=== PATIENT | female | born 1935 | race Caucasian/White ===

== ENCOUNTER → 2017-03-05 | Outpatient (CLI) | payer OTHER, MEDICARE ==
[~2017-03-05] MED LIST: ACET-1256 PO; ALPR-411 PO; ASCO500T3 PO; ASPI81TA28 PO; CALC600T9 PO; CHLO5CAP19 PO; DPH/ PO; DPRSO15 TOP; FEXO1TAB49 PO; FLUT0.15 NAE; LEVO50TA PO; LISI-725 PO; MECL1TAB40 PO; MULTTAB58 PO; OMEG10007 PO; PRAV40TA2 PO; SITA25TA PO; ZNTT/150 PO
[2017-03-05 12:45] LABS: BASO % 0.3 %; BASO ABS # 0.02 K/uL (0-0.2); COMPLETE YES; EOS % 0.7 %; HEMATOCRIT 41.1 % (37-47); IG% 0.1 %; LYMPH ABS # 2.34 K/uL (1.2-3.4); MEAN CELL VOLUME 89.9 fL (80-100); MEAN CORPUSCULAR HEMOGLOBIN 31.7 pg (25-34); MEAN CORPUSCULAR HGB CONC 35.3 g/dl (32-36); MEAN PLATELET VOLUME 10.4 fL (7.4-10.4); NEUT % 56.9 %; PLATELET COUNT 190 K/uL (130-400); RED BLOOD COUNT 4.57 M/uL (4.2-5.4); WHITE BLOOD COUNT 6.89 K/uL (4.8-10.8)
[2017-03-05 12:53] LABS: PROTHROMBIN TIME (PATIENT) 10.8 SECONDS (9.0-12.0)
[2017-03-05 13:04] LABS: HEPATITIS B AB POS
[2017-03-05 13:09] LABS: ALKALINE PHOSPHATASE 85 U/L (45-117); ALT/SGPT 28 U/L (12-78); AST/SGOT 20 U/L (15-37); BLOOD UREA NITROGEN 14 mg/dl (7-18); BUN/CREATININE RATIO 13.5 (10-20); CALCIUM 9.3 mg/dl (8.5-10.1); CARBON DIOXIDE 29 mmol/L (21-32); CHLORIDE 96 mmol/L (98-107); GLUCOSE 89 mg/dl (70-99); HDL CHOLESTEROL 65 mg/dl; MAGNESIUM 2.2 mg/dl (1.8-2.4); SODIUM 132 mmol/L (136-145)
[2017-03-05 13:14] LABS: ALB/GLOB RATIO 1.2 (0.9-2); CHOLESTEROL 146 mg/dl (0-200); CHOLESTEROL/HDL RATIO 2.2; LDL CHOLESTEROL CALCULATED 65 mg/dl; TRIGLYCERIDES 79 mg/dl (0-150); VERY LOW DENSITY LIPOPROT CALC 16 mg/dl
[2017-03-05 13:21] LABS: ESTIMATED AVERAGE GLUCOSE 111 mg/dl; HA1C FLAG Normal (Normal)
[2017-03-05 13:37] LABS: RATIO 10.1 mcg/mg (0-30.0)
== END | disposition home or self-care (01) ==
LOC: C.LABBFT 08:40
PROVIDERS: ATTEND Nurse Practitioner Family
DX: E11.9 Type 2 diabetes mellitus without complications (principal); E78.00 Pure hypercholesterolemia, unspecified; E03.9 Hypothyroidism, unspecified; K21.9 Gastro-esophageal reflux disease without esophagitis; I10 Essential (primary) hypertension; K75.81 Nonalcoholic steatohepatitis (NASH); K74.60 Unspecified cirrhosis of liver

== ENCOUNTER → 2017-04-04 | Outpatient (CLI) | payer OTHER, MEDICARE ==
[2017-04-04 19:44] LABS: URINE APPEARANCE CLOUDY (CLEAR); URINE BILIRUBIN NEG (NEG); URINE COLOR RED; URINE NITRITE NEG (NEG); URINE PH 6.5 (4.5-7.5); URINE SPECIFIC GRAVITY 1.011 (1.000-1.030); UROBILINOGEN NEG (NEG)
[2017-04-04 19:46] LABS: MANUAL MICROSCOPIC REQUIRED? NO; REVIEW REQ? NO
== END | disposition home or self-care (01) ==
LOC: C.LABSPEC 17:52
PROVIDERS: ATTEND Nurse Practitioner Adult Health
DX: R30.0 Dysuria (principal)

== ENCOUNTER → 2017-04-25 | Outpatient (CLI) | payer OTHER, MEDICARE ==
[2017-04-26 11:59] LABS: URINE APPEARANCE CLOUDY (CLEAR); URINE BILIRUBIN NEG (NEG); URINE COLOR YELLOW; URINE NITRITE NEG (NEG); URINE PH 7.5 (4.5-7.5); URINE SPECIFIC GRAVITY 1.008 (1.000-1.030); UROBILINOGEN NEG (NEG)
[2017-04-26 12:16] LABS: MANUAL MICROSCOPIC REQUIRED? NO; REVIEW REQ? NO
== END | disposition home or self-care (01) ==
LOC: C.LABSPEC 11:15
PROVIDERS: ATTEND Family Medicine
DX: R30.0 Dysuria (principal)

== ENCOUNTER → 2017-05-02 | Outpatient (CLI) | payer OTHER, MEDICARE | END | disposition home or self-care (01) | LOC: C.PATHSPEC 17:09 | PROVIDERS: ATTEND Nurse Practitioner Family | DX: R31.9 Hematuria, unspecified (principal) ==

== ENCOUNTER → 2017-05-06 | Outpatient (CLI) | payer OTHER, MEDICARE ==
[2017-05-06 12:36] LABS: BLOOD UREA NITROGEN 12 mg/dl (7-18); BUN/CREATININE RATIO 13.5 (10-20); CREATININE 0.91 mg/dl (0.60-1.20)
== END | disposition home or self-care (01) ==
LOC: C.LABBFT 09:08
PROVIDERS: ATTEND Nurse Practitioner Family
DX: R31.9 Hematuria, unspecified (principal)

== ENCOUNTER → 2017-05-13 | Outpatient (CLI) | payer OTHER, MEDICARE ==
[~2017-05-13] MED LIST changes: +OPTIRAY 320 IV PRN
--- NOTE | 2017-05-13 11:29 | DIAGNOSTIC IMAGING REPORT ---
ABDOMEN AND PELVIS CT EXAMINATION PRE AND POST INTRAVENOUS CONTRAST CT DOSE: 1851.25 mGycm HISTORY: Hematuria R31.9 Hematuria diabetic-insulin only, no latex allergy, no iodine TECHNIQUE: Multiaxial CT images of the abdomen and pelvis were performed pre and post intravenous contrast enhancement. COMPARISON STUDY: 06/15/2016 FINDINGS: unenhanced component study confirms presence of an interval cholecystectomy. There are no renal calcifications. There is no evidence for renal hydronephrosis. Extrarenal pelves are noted bilaterally. Enhancing characteristics of the kidneys is uniform. There are no significant space-occupying renal lesions. Ureters normal in course and caliber. Bladder opacifies appropriately. Bowel pattern is nonobstructive throughout. There is no significant abdominal pelvic or inguinal adenopathy. IMPRESSION: 1. Interval cholecystectomy. 2. Normal evaluation of the urinary tracts.. 3. No acute process of the abdomen or pelvis. Electronically signed by: Adam Roblero M.D. 05/13/2017 11:28 AM Dictated Date/Time: 05/13/2017 11:23 AM
== END | disposition home or self-care (01) ==
LOC: C.CTS 10:49
PROVIDERS: ATTEND Nurse Practitioner Family
DX: R31.9 Hematuria, unspecified (principal); E11.9 Type 2 diabetes mellitus without complications

== ENCOUNTER → 2017-09-09 | Outpatient (CLI) | payer OTHER, MEDICARE ==
[~2017-09-09] MED LIST changes: -OPTIRAY 320 IV PRN
[2017-09-09 12:15] LABS: BASO % 0.4 %; BASO ABS # 0.02 K/uL (0-0.2); COMPLETE YES; HEMATOCRIT 39.8 % (37-47); IG% 0.2 %; LYMPH ABS # 1.84 K/uL (1.2-3.4); MEAN CELL VOLUME 91.5 fL (80-100); MEAN CORPUSCULAR HEMOGLOBIN 32.4 pg (25-34); MEAN CORPUSCULAR HGB CONC 35.4 g/dl (32-36); MEAN PLATELET VOLUME 10.3 fL (7.4-10.4); MONO % 9.5 %; NEUT % 53.9 %; PLATELET COUNT 181 K/uL (130-400); RED BLOOD COUNT 4.35 M/uL (4.2-5.4); WHITE BLOOD COUNT 5.26 K/uL (4.8-10.8)
[2017-09-09 12:37] LABS: ESTIMATED AVERAGE GLUCOSE 108 mg/dl; HA1C FLAG Normal (Normal)
[2017-09-09 13:41] LABS: AST/SGOT 20 U/L (15-37); BLOOD UREA NITROGEN 13 mg/dl (7-18); BUN/CREATININE RATIO 19.2 (10-20); CALCIUM 9.3 mg/dl (8.5-10.1); CARBON DIOXIDE 27 mmol/L (21-32); CHLORIDE 99 mmol/L (98-107); CREATININE 0.69 mg/dl (0.60-1.20); GLUCOSE 92 mg/dl (70-99); POTASSIUM 4.3 mmol/L (3.5-5.1); SODIUM 134 mmol/L (136-145); TRIGLYCERIDES 96 mg/dl (0-150); VERY LOW DENSITY LIPOPROT CALC 19 mg/dl
[2017-09-09 13:55] LABS: ALB/GLOB RATIO 1.2 (0.9-2); ALKALINE PHOSPHATASE 88 U/L (45-117); ALT/SGPT 25 U/L (12-78); CHOLESTEROL 157 mg/dl (0-200); CHOLESTEROL/HDL RATIO 2.6; HDL CHOLESTEROL 61 mg/dl; LDL CHOLESTEROL CALCULATED 77 mg/dl
== END | disposition home or self-care (01) ==
LOC: C.LABBFT 09:03
PROVIDERS: ATTEND Nurse Practitioner Family
DX: E11.9 Type 2 diabetes mellitus without complications (principal); E78.00 Pure hypercholesterolemia, unspecified; E03.9 Hypothyroidism, unspecified; K21.9 Gastro-esophageal reflux disease without esophagitis; I10 Essential (primary) hypertension; E11.40 Type 2 diabetes mellitus with diabetic neuropathy, unspecified; R51 Headache

== ENCOUNTER → 2018-03-11 | Outpatient (CLI) | payer OTHER, MEDICARE ==
[~2018-03-11] MED LIST changes: +RANI150T85 PO; -ZNTT/150 PO
[2018-03-11 12:35] LABS: BASO % 0.3 %; BASO ABS # 0.02 K/uL (0-0.2); EOS % 1.2 %; EOS ABS # 0.09 K/uL (0-0.5); HEMATOCRIT 39.7 % (37-47); IG# 0.02 K/uL (0.00-0.02); LYMPH % 33.1 %; LYMPH ABS # 2.53 K/uL (1.2-3.4); MEAN CELL VOLUME 91.7 fL (80-100); MEAN CORPUSCULAR HEMOGLOBIN 32.3 pg (25-34); MEAN CORPUSCULAR HGB CONC 35.3 g/dl (32-36); MEAN PLATELET VOLUME 10.1 fL (7.4-10.4); MONO % 8.9 %; MONO ABS # 0.68 K/uL (0.11-0.59); NEUT % 56.2 %; NEUT ABS # 4.31 K/uL (1.4-6.5); PLATELET COUNT 194 K/uL (130-400); RED CELL DISTRIBUTION WIDTH SD 43.7 fL (36.4-46.3); WHITE BLOOD COUNT 7.65 K/uL (4.8-10.8)
[2018-03-11 12:49] LABS: HEMOGLOBIN A1C 5.8 % (4.5-5.6)
[2018-03-11 12:58] LABS: ALBUMIN 4.2 gm/dl (3.4-5.0); BLOOD UREA NITROGEN 16 mg/dl (7-18); CALCIUM 9.1 mg/dl (8.5-10.1); CARBON DIOXIDE 29 mmol/L (21-32); CREATININE 0.83 mg/dl (0.60-1.20); GLUCOSE 98 mg/dl (70-99); POTASSIUM 4.6 mmol/L (3.5-5.1); SODIUM 129 mmol/L (136-145)
[2018-03-11 13:13] LABS: ALKALINE PHOSPHATASE 101 U/L (45-117); ALT/SGPT 35 U/L (12-78); AST/SGOT 24 U/L (15-37); CHOLESTEROL 154 mg/dl (0-200); LDL CHOLESTEROL CALCULATED 71 mg/dl; TOTAL PROTEIN 7.8 gm/dl (6.4-8.2)
== END | disposition home or self-care (01) ==
LOC: C.LABBFT 08:59
PROVIDERS: ATTEND Nurse Practitioner
DX: K76.0 Fatty (change of) liver, not elsewhere classified (principal); E11.9 Type 2 diabetes mellitus without complications; E78.00 Pure hypercholesterolemia, unspecified; E03.9 Hypothyroidism, unspecified; K21.9 Gastro-esophageal reflux disease without esophagitis; I10 Essential (primary) hypertension; E11.40 Type 2 diabetes mellitus with diabetic neuropathy, unspecified

== ENCOUNTER → 2018-03-24 | Outpatient (CLI) | payer OTHER, MEDICARE ==
[2018-03-24 12:59] LABS: ALBUMIN 4.1 gm/dl (3.4-5.0); BLOOD UREA NITROGEN 17 mg/dl (7-18); CALCIUM 9.2 mg/dl (8.5-10.1); CARBON DIOXIDE 29 mmol/L (21-32); CREATININE 0.77 mg/dl (0.60-1.20); GLUCOSE 85 mg/dl (70-99); POTASSIUM 4.4 mmol/L (3.5-5.1); SODIUM 132 mmol/L (136-145)
[2018-03-24 13:00] LABS: PHOSPHORUS 3.8 mg/dl (2.5-4.9)
== END | disposition home or self-care (01) ==
LOC: C.LAB1850 11:06
PROVIDERS: ATTEND Internal Medicine Nephrology
DX: E87.1 Hypo-osmolality and hyponatremia (principal)

== ENCOUNTER → 2018-04-04 | Outpatient (CLI) | payer OTHER, MEDICARE ==
[2018-04-04 16:45] LABS: ALBUMIN 4.2 gm/dl (3.4-5.0); BLOOD UREA NITROGEN 23 mg/dl (7-18); CARBON DIOXIDE 27 mmol/L (21-32); CREATININE 0.77 mg/dl (0.60-1.20); GLUCOSE 86 mg/dl (70-99); POTASSIUM 4.1 mmol/L (3.5-5.1); SODIUM 133 mmol/L (136-145)
[2018-04-04 16:46] LABS: PHOSPHORUS 3.2 mg/dl (2.5-4.9)
== END | disposition home or self-care (01) ==
LOC: C.LABBFT 12:03
PROVIDERS: ATTEND Internal Medicine Nephrology
DX: E87.1 Hypo-osmolality and hyponatremia (principal)

== ENCOUNTER 2021-08-30 10:20 | Inpatient (IN) ==
--- NOTE | 2021-08-30 11:34 | Emergency Department Note ---
History of Present Illness General Chief complaint: Abnormal Labs/Diagnostic Testing Stated complaint: ABNORMAL LAB WORK--HIGH POTASSIUM, LOW SODIUM Time Seen by Provider: 08/30/21 11:19 Source: patient, RN notes reviewed and old records reviewed Mode of arrival: ambulatory Limitations: no limitations History of Present Illness This patient is a 85-year-old female who has a history of Hester and is followed by Jennifer EDWARDS, comes in after having electrolyte abnormalities. She has been swelling for the last 2 weeks more than normal the increase her diuretic and change them on the and also again later. Her legs have started to go down. She has not felt well over the weekend she had some nausea decreased appetite a mild headache. No fall or trauma no chest pain she does feel mildly short of breath with walking for the last couple days she has had the Covid vaccine. No heart racing lightheadedness dizziness syncope or near syncope. She had lab work done yesterday as well as an ultrasound apparently her sodium was 128 and potassium was 6. Home Medications Medication Instructions Recorded Confirmed Type aspirin 81 mg tablet,delayed 81 mg PO DAILY 08/18/19 08/30/21 History release (Adult Low Dose Aspirin) calcium carb-vit D3-minerals 600 1 tab PO BID 08/18/19 08/30/21 History mg calcium-400 unit tablet cranberry extract 650 mg capsule 1,300 mg PO DAILY 08/18/19 08/30/21 History glucosamine sulfate 1,000 mg 1,000 mg PO BID 08/18/19 08/30/21 History capsule ibuprofen 200 mg capsule 200 mg PO Q6H 08/18/19 08/30/21 History multivitamin with iron (Daily 1 tab PO DAILY 08/18/19 08/30/21 History Multiple Vitamins/Iron) omega-3 fatty acids-fish oil 360 1 cap PO DAILY 08/18/19 08/30/21 History mg-1,200 mg capsule (Fish Oil) betamethasone dipropionate 0.05 % 1 appln TOP DAILY PRN #45 gm 09/15/19 08/30/21 Rx topical cream meclizine 12.5 mg tablet 12.5 mg PO TID PRN #60 tab 09/15/19 08/30/21 Rx fexofenadine 60 mg tablet (Allergy 60 mg PO DAILY tab 08/08/20 08/30/21 History Relief (fexofenadine)) blood sugar diagnostic (OneTouch #300 ea 01/04/21 08/10/21 Rx Ultra Blue Test Strip) diclofenac sodium 1 % topical gel 4 g TOPICAL QID PRN #100 g 02/06/21 08/30/21 Rx (Voltaren) solifenacin 5 mg tablet (Vesicare) 5 mg PO DAILY #90 tab 03/23/21 08/30/21 Rx levothyroxine 75 mcg tablet 75 mcg PO DAILY #90 tab 05/01/21 08/30/21 Rx pravastatin 40 mg tablet 40 mg PO DAILY #90 tab 05/01/21 08/30/21 Rx ascorbate calcium (vitamin C) 500 500 mg PO BID 06/22/21 08/30/21 History mg tablet furosemide 40 mg tablet (Lasix) 60 mg PO DAILY tab 06/22/21 08/30/21 History lisinopril 20 mg tablet 20 mg PO DAILY #90 tab 08/01/21 08/30/21 Rx chlordiazepoxide HCl 5 mg capsule 5 mg PO TID PRN #90 cap 08/07/21 08/30/21 Rx diphenoxylate-atropine 2.5 1 tab PO TID PRN #90 tab 08/07/21 08/30/21 Rx mg-0.025 mg tablet fluocinonide 0.05 % topical cream 1 applic TOP BID #30 gm 08/07/21 08/30/21 Rx promethazine 12.5 mg tablet 12.5 mg PO TID PRN #90 tab 08/07/21 08/30/21 Rx acetaminophen 500 mg tablet 500 mg PO Q6H PRN 08/30/21 08/30/21 History (Tylenol Extra Strength) famotidine 20 mg tablet 20 mg PO DAILY PRN 08/30/21 08/30/21 History spironolactone 100 mg tablet 100 mg PO QAM 08/30/21 08/30/21 History Allergies Allergy/AdvReac Type Severity Reaction Status Date / Time No Known Drug Allergies Allergy Verified 08/30/21 12:34 Past Med/Surg History Medical History (Updated 08/30/21 @ 16:56 by Jignesh Miller MD) Fatty (change of) liver, not elsewhere classified Former smoker H/O gastroesophageal reflux (GERD) History of basal cell carcinoma Pancreatitis Skin cancer 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 Surgical History H/O Mohs micrographic surgery for skin cancer face S/P appendectomy S/P cholecystectomy S/P ERCP S/P hysterectomy S/P tonsillectomy Family History Father Prostate cancer Diabetes Sister Myocardial infarction Mother Diabetes Stroke Family/Other Diabetes Colorectal cancer Denies family history of Ovarian cancer Breast cancer Social History Smoking Status: Never smoker Tobacco Type: Cigarettes Age Started Using Tobacco: 18; Age Quit Using Tobacco: 22; packs per day: 0.5; Years Smoked: 4; Cigarettes Per Day: 1 ppwk; Number of Years Since Quit: 63; Second Hand Exposure: No; Hx Alcohol Use: No Hx Substance Use: No Preferred Language: Hebrew Communication Ability: Effective Visual Impairment: Limited Hearing Ability: Hard of Hearing 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 marital status: / Current Living Situation: Alone current occupational status: retired How many Children do You have: 2 Feels Safe at Home: Yes Childhood Exposure to Second-Hand Smoke: No caffeine: Yes during the past year weight has: remained stable Dental Care, Regularly: No Physical Activity Frequency: Does not Exercise Seatbelt Use: always Sunscreen Use: No Assistive Devices: Denture - Upper, Denture - Lower, Glasses and Walker Review of Systems A total of 10 systems reviewed and were otherwise negative Physical Exam Vital Signs Vital Signs - 24 hr 08/30/21 10:26 08/30/21 11:10 08/30/21 14:03 Temperature 36.7 C Temperature Source Temporal Artery Scan Pulse Rate 80 Pulse Rate [Apical] 66 66 Pulse Rhythm [Apical] Regular Respiratory Rate 20 18 18 Blood Pressure 138/66 Blood Pressure [Left Arm] 137/71 Blood Pressure Mean 90 Blood Pressure Mean [Left Arm] 93 Pulse Oximetry 96 95 Oxygen Delivery Method Room Air Room Air Sepsis Recent Fever Within 48 Hours No Sepsis New/Unexplained Change in Mental Status No Sepsis Action Taken by Nursing No Action Required General: Well developed well nourished older female who appears in no acute distress, breathing comfortably on room air. Normal speech HEENT: Normal cephalic atraumatic. Pupils are equal round and reactive to light. Extraocular movements are intact. Oropharynx is pink with moist mucous membranes. No swelling of the mouth lips or tongue. Neck: Supple with a midline trachea. No meningeal signs or stiffness, no JVD or bruits. No Stridor. Chest: Clear to auscultation bilaterally. No wheezes or rhonchi. No increased work of breathing. Heart: Regular rate and rhythm without murmurs or gallops. Abdomen: Soft nontender, nondistended without rebound guarding or rigidity. Extremities: No cyanosis clubbing she has bilateral 1-2+ lower extremity edema. No calf tenderness or assymetry Spine/Back. Non tender to palpation. No CVA tenderness Skin: Good turgor without rashes. Neurologic exam: Cranial nerves two through 12 are intact. Motor and sensation are intact and symmetrical throughout. Medical Decision Making Differential Diagnosis Dehydration, hyperkalemia, hyponatremia, CHF, Hester, electrolyte or metabolic abnormality, infection, Covid Medical Records Attestation: I reviewed the patient's medical records. Home Medications Current Medication List: was personally reviewed by me Laboratory Data Attestation: I reviewed the patient's lab results. Result diagrams: 08/30/21 11:15 08/30/21 11:15 Lab Results 08/30/21 08/30/21 08/30/21 Range/Units 11:15 11:15 11:15 WBC 12.35 H (4.8-10.8) K/uL RBC 3.86 L (4.2-5.4) M/uL Hgb 12.5 (12.0-16.0) g/dL Hct 35.2 L (37-47) % MCV 91.2 (80-100) fL MCH 32.4 (25-34) pg MCHC 35.5 (32-36) g/dL RDW Std Deviation 43.7 (36.4-46.3) fL RDW Coeff of Timothy 13.1 (11.5-14.5) % Plt Count 144 (130-400) K/uL MPV 10.8 H (7.4-10.4) fL Immature Gran % (Auto) 0.2 % Neut % (Auto) 80.0 % Lymph % (Auto) 10.0 % [place] % (Auto) 6.4 % Eos % (Auto) 3.2 % Baso % (Auto) 0.2 % Neut # (Auto) 9.89 H (1.4-6.5) K/uL Lymph # (Auto) 1.24 (1.2-3.4) K/uL [place] # (Auto) 0.79 H (0.11-0.59) K/uL Eos # (Auto) 0.39 (0-0.5) K/uL Baso # (Auto) 0.02 (0-0.2) K/uL Immature Gran # (Auto) 0.02 (0.00-0.02) K/uL Sodium 126 L (136-145) mmol/L Potassium 5.4 H (3.5-5.1) mmol/L Chloride 95 L (98-107) mmol/L Carbon Dioxide 24 (21-32) mmol/L Anion Gap 7.0 (3-11) BUN 34 H (7-18) mg/dl Creatinine 1.89 H (0.6-1.2) mg/dl Est Cr Clr Drug Dosing 20.9 ml/min Est GFR ( Amer) 27.8 ml/min Est GFR (Non-Af Amer) 23.9 ml/min BUN/Creatinine Ratio 17.8 (10-20) Glucose 103 H (70-99) mg/dl Calcium 10.4 H (8.5-10.1) mg/dl Magnesium 2.1 (1.8-2.4) mg/dl Total Bilirubin 0.5 (0.2-1) mg/dl AST 16 (15-37) U/L ALT 39 (12-78) U/L Alkaline Phosphatase 122 H (45-117) U/L Troponin I < 0.015 (0-0.045) ng/ml NT-Pro-B Natriuret Pep 159 (0-1800) pg/ml Total Protein 8.0 (6.4-8.2) gm/dl Albumin 3.2 L (3.4-5.0) gm/dl Globulin 4.8 H (2.5-4.0) gm/dl Albumin/Globulin Ratio 0.7 L (0.9-2) TSH 1.330 (0.300-4.500) uIu/ml COVID-19 Eval Order Covid19 at [facility] SARS-CoV-2 (PCR) (Negative) 08/30/21 Range/Units 11:15 WBC (4.8-10.8) K/uL RBC (4.2-5.4) M/uL Hgb (12.0-16.0) g/dL Hct (37-47) % MCV (80-100) fL MCH (25-34) pg MCHC (32-36) g/dL RDW Std Deviation (36.4-46.3) fL RDW Coeff of Timothy (11.5-14.5) % Plt Count (130-400) K/uL MPV (7.4-10.4) fL Immature Gran % (Auto) % Neut % (Auto) % Lymph % (Auto) % [place] % (Auto) % Eos % (Auto) % Baso % (Auto) % Neut # (Auto) (1.4-6.5) K/uL Lymph # (Auto) (1.2-3.4) K/uL [place] # (Auto) (0.11-0.59) K/uL Eos # (Auto) (0-0.5) K/uL Baso # (Auto) (0-0.2) K/uL Immature Gran # (Auto) (0.00-0.02) K/uL Sodium (136-145) mmol/L Potassium (3.5-5.1) mmol/L Chloride (98-107) mmol/L Carbon Dioxide (21-32) mmol/L Anion Gap (3-11) BUN (7-18) mg/dl Creatinine (0.6-1.2) mg/dl Est Cr Clr Drug Dosing ml/min Est GFR ( Amer) ml/min Est GFR (Non-Af Amer) ml/min BUN/Creatinine Ratio (10-20) Glucose (70-99) mg/dl Calcium (8.5-10.1) mg/dl Magnesium (1.8-2.4) mg/dl Total Bilirubin (0.2-1) mg/dl AST (15-37) U/L ALT (12-78) U/L Alkaline Phosphatase (45-117) U/L Troponin I (0-0.045) ng/ml NT-Pro-B Natriuret Pep (0-1800) pg/ml Total Protein (6.4-8.2) gm/dl Albumin (3.4-5.0) gm/dl Globulin (2.5-4.0) gm/dl Albumin/Globulin Ratio (0.9-2) TSH (0.300-4.500) uIu/ml COVID-19 Eval Order SARS-CoV-2 (PCR) NEGATIVE (Negative) Imaging Data Attestation: I personally reviewed and interpreted this imaging study as follows: My Impression: Chest x-raycardiomegaly without congestive heart failure pneumonia pneumothorax Radiologist's Impression: Chest X-Ray 08/30/21 11:29 XR chest 1V portable HISTORY: 85 years-old Female weakness acute weakness COMPARISON: Chest radiograph 6 07/09/2012 TECHNIQUE: Portable AP view of the chest FINDINGS: Cardiomediastinal and hilar silhouettes are within normal limits. Calcified plaque of the thoracic aortic arch. No pneumothorax, pleural effusion, airspace consolidation or overt pulmonary edema. Coarsening of the interstitium is likely chronic. Degenerative changes of the shoulders and spine. IMPRESSION: Cardiomegaly without acute process. ACT 112: Negative or not required by law. The above report was generated using voice recognition software. It may contain grammatical, syntax or spelling errors. Electronically signed by: Sang Painter M.D. 08/30/2021 12:10 PM ECG Data Attestation: I personally reviewed and interpreted this ECG as follows: Indication: + toxicologic and + weakness Rate (beats per minute): 63 Rhythm: + sinus with SA ECG Intervals/blocks: + Normal QRS, + Normal QT and + Normal NM ECG [place]: + Normal ECG ST segments: + Normal ST segments ECG Findings: no PACs or no PVCs Comparison ECG Date: from (06/15/16) Change: no significant change MDM Narrative This patient comes in as described above. She was placed on a magnetic tape winder room B3. She is sent over after having abnormal labs from yesterday she looks well besides having lower extremity swelling. This is presumably from her Hester she tells me she is never had any cardiac issues. EKG and chest x-ray were obtained as well as multiple blood testing. She was reassessed frequently. Her potassium was lower than it was yesterday but still elevated at 5.4 sodium was also low at 126. More concerning was her creatinine and BUN have bumped up with a creatinine of 1.89. She may have been over diuresed she is generally weak. Chest x-ray does not show just of heart failure, pneumonia or pneumothorax. EKG does not show any acute ischemia changes. Her ongoing weakness and her electrolyte abnormalities as well as her elevated BUN and creatinine do think she needs to be admitted/observe for further treatment evaluation. I did Consult Dr. Poe to see her in ER for these measures Continuous cardiac monitoring: Given the patient's complaints with possible electrolyte abnormalities I did place an order for continuous cardiac monitoring. Upon my interpretation the patient was noted to be in normal sinus rhythm with a rate of 66 Impression & Plan Acute kidney injury, Hyponatremia, Weakness, Acute hyperkalemia, Lab test negative for COVID-19 virus Discharge Plan Visit Data Chief Complaint: Abnormal Labs/Diagnostic Testing Stated Complaint: ABNORMAL LAB WORK--HIGH POTASSIUM, LOW SODIUM ED Provider: Jignesh Miller Discharge Problem: Acute kidney injury, Hyponatremia, Weakness, Acute hyperkalemia, Lab test negative for COVID-19 virus Patient Disposition: Admitted As Inpatient Discharge Instructions Interventions: ED Discharge Assessment Last Done: 08/30/21 15:54
[2021-08-30 11:51] LABS: Basophils # (auto) 0.02 K/uL (0-0.2); Basophils % (auto) 0.2 %; Eosinophils # (auto) 0.39 K/uL (0-0.5); Eosinophils % (auto) 3.2 %; Hematocrit (blood only) 35.2 % (37-47); Hemoglobin 12.5 g/dL (12.0-16.0); Immature Granulocytes # (auto) 0.02 K/uL (0.00-0.02); Immature Granulocytes % (auto) 0.2 %; Lymphocytes # (auto) 1.24 K/uL (1.2-3.4); Mean Corpuscular Hemoglobin 32.4 pg (25-34); Mean Corpuscular Hgb Conc 35.5 g/dL (32-36); Mean Corpuscular Volume 91.2 fL (80-100); Mean Platelet Volume 10.8 fL (7.4-10.4); Monocytes # (auto) 0.79 K/uL (0.11-0.59); Monocytes % (auto) 6.4 %; Neutrophils # (auto) 9.89 K/uL (1.4-6.5); Platelet Count 144 K/uL (130-400); RDW Coefficient of Variation 13.1 % (11.5-14.5); RDW Standard Deviation 43.7 fL (36.4-46.3); Red Blood Count 3.86 M/uL (4.2-5.4); White Blood Count 12.35 K/uL (4.8-10.8)
[2021-08-30 11:58] LABS: Alanine Aminotransferase 39 U/L (12-78); Albumin Level 3.2 gm/dl (3.4-5.0); Aspartate Aminotransferase 16 U/L (15-37); BUN Creatinine Ratio 17.8 (10-20); Blood Urea Nitrogen 34 mg/dl (7-18); Calcium 10.4 mg/dl (8.5-10.1); Carbon Dioxide 24 mmol/L (21-32); Chloride 95 mmol/L (98-107); Creatinine Clr Calc Pharmacy 20.9 ml/min; Est GFR (African American) 27.8 ml/min; Est GFR (Non-African American) 23.9 ml/min; Glucose 103 mg/dl (70-99); Magnesium 2.1 mg/dl (1.8-2.4); Potassium 5.4 mmol/L (3.5-5.1); Sodium 126 mmol/L (136-145)
[2021-08-30 12:09] LABS: Albumin Globulin Ratio 0.7 (0.9-2); Alkaline Phosphatase 122 U/L (45-117); Bilirubin,Total 0.5 mg/dl (0.2-1); Globulin 4.8 gm/dl (2.5-4.0); NT Pro B Type Natriuretic Pept 159 pg/ml (0-1800); Troponin I < 0.015 ng/ml (0-0.045)
--- NOTE | 2021-08-30 12:11 | XRay Report ---
XR chest 1V portable HISTORY: 85 years-old Female weakness acute weakness COMPARISON: Chest radiograph 6 07/09/2012 TECHNIQUE: Portable AP view of the chest FINDINGS: Cardiomediastinal and hilar silhouettes are within normal limits. Calcified plaque of the thoracic ao rtic arch. No pneumothorax, pleural effusion, airspace consolidation or overt pulmonary edema. Coarse lupe of the interstitium is likely chronic. Degenerative changes of the shoulders and spine. IMPRESSION: Cardiomegaly without acute process. ACT 112: Negative or not required by law. The above report was generated using voice recognition software. It may contain grammatical, syntax o r spelling errors. Electronically signed by: Sang Painter M.D. 08/30/2021 12:10 PM
[2021-08-30 13:26] LABS: Appearance Urine Cloudy (Clear); Bacteria Urine Automated 4+ (Negative); Bilirubin Urine Negative (Negative); Blood Urine Trace (Negative); Color Urine Dark Yellow; Epithelial Cell Urine Auto 20-30 /lpf (0-5); Glucose Urine UA Negative (Negative); Ketones Urine Trace (Negative); Leukocyte Esterase Urine 2+ (Negative); Nitrite Urine Negative (Negative); Protein Urine 2+ (Negative); Specific Gravity Urine 1.016 (1.000-1.030); Urobilinogen Urine Negative (Negative); WBC Urine Automated >30 /hpf (0-5)
[2021-08-30 13:57] LABS: Calcium Oxalate Crystals Urine Present (None Prsent)
[2021-08-30 13:58] LABS: RBC Urine Automated 0-4 /hpf (0-4)
--- NOTE | 2021-08-30 15:03 | History & Physical Report ---
Date of Service August 30, 2021 Assessment & Plan (1) Acute kidney injury: Plan: Creatinine 1.9 upon admission, with baseline 0.87 Sodium 126, potassium 5.4 Hold furosemide, ibuprofen, lisinopril and spironolactone NSS at 60 mils per hour x2 L Repeat laboratories in a.m. Patient needs to avoid excessive sodium diet that she has been on. She reports that she cannot eat but most foods due to her IBS, and has been eating high sodium foods such as hams and cold cuts (2) Hyponatremia: Plan: See above (3) Hyperkalemia, diminished renal excretion: Plan: See above (4) Hypertension: Plan: 40 medications as noted above (5) Hypercholesterolemia: Plan: Continue pravastatin 40 mg daily (6) Hypothyroidism: Plan: Continue levothyroxine 75 mcg daily History of Present Illness Chief Complaint: The patient presents to the emergency department with increasing lower extremity edema over the past few weeks, for which her outpatient Lasix dosing was increased, with some mild improvement, but the development of nausea and generalized weakness Primary Care Provider: Dakota Lopez III, VEGA The patient is an 85-year-old female past medical history including diabetes mellitus, diabetic neuropathy, hypercholesterolemia, hypertension, hyponatremia, irritable bowel syndrome, midline cystocele, rectocele, vitamin D deficiency and hypothyroidism. Patient reports from a dietary perspective she is not able to eat many of the foods that are good for due to her IBS, so she has been eating a lot of highly salted foods such as hams and cold cuts. Emergency department abnormal laboratories: Sodium 126, potassium 5.4, BUN 34, creatinine 1.9, albumin 3.2, calcium 10.4, WBC 12.35. Chest x-ray shows mild cardiomegaly Allergies Allergy/AdvReac Type Severity Reaction Status Date / Time No Known Drug Allergies Allergy Verified 08/30/21 12:34 Home Medications Medication Instructions Recorded Confirmed Type aspirin 81 mg tablet,delayed 81 mg PO DAILY 08/18/19 08/30/21 History release (Adult Low Dose Aspirin) calcium carb-vit D3-minerals 600 1 tab PO BID 08/18/19 08/30/21 History mg calcium-400 unit tablet cranberry extract 650 mg capsule 1,300 mg PO DAILY 08/18/19 08/30/21 History glucosamine sulfate 1,000 mg 1,000 mg PO BID 08/18/19 08/30/21 History capsule ibuprofen 200 mg capsule 200 mg PO Q6H 08/18/19 08/30/21 History multivitamin with iron (Daily 1 tab PO DAILY 08/18/19 08/30/21 History Multiple Vitamins/Iron) omega-3 fatty acids-fish oil 360 1 cap PO DAILY 08/18/19 08/30/21 History mg-1,200 mg capsule (Fish Oil) betamethasone dipropionate 0.05 % 1 appln TOP DAILY PRN #45 gm 09/15/19 08/30/21 Rx topical cream meclizine 12.5 mg tablet 12.5 mg PO TID PRN #60 tab 09/15/19 08/30/21 Rx fexofenadine 60 mg tablet (Allergy 60 mg PO DAILY tab 08/08/20 08/30/21 History Relief (fexofenadine)) blood sugar diagnostic (OneTouch #300 ea 01/04/21 08/10/21 Rx Ultra Blue Test Strip) diclofenac sodium 1 % topical gel 4 g TOPICAL QID PRN #100 g 02/06/21 08/30/21 Rx (Voltaren) solifenacin 5 mg tablet (Vesicare) 5 mg PO DAILY #90 tab 03/23/21 08/30/21 Rx levothyroxine 75 mcg tablet 75 mcg PO DAILY #90 tab 05/01/21 08/30/21 Rx pravastatin 40 mg tablet 40 mg PO DAILY #90 tab 05/01/21 08/30/21 Rx ascorbate calcium (vitamin C) 500 500 mg PO BID 06/22/21 08/30/21 History mg tablet furosemide 40 mg tablet (Lasix) 60 mg PO DAILY tab 06/22/21 08/30/21 History lisinopril 20 mg tablet 20 mg PO DAILY #90 tab 08/01/21 08/30/21 Rx chlordiazepoxide HCl 5 mg capsule 5 mg PO TID PRN #90 cap 08/07/21 08/30/21 Rx diphenoxylate-atropine 2.5 1 tab PO TID PRN #90 tab 08/07/21 08/30/21 Rx mg-0.025 mg tablet fluocinonide 0.05 % topical cream 1 applic TOP BID #30 gm 08/07/21 08/30/21 Rx promethazine 12.5 mg tablet 12.5 mg PO TID PRN #90 tab 08/07/21 08/30/21 Rx acetaminophen 500 mg tablet 500 mg PO Q6H PRN 08/30/21 08/30/21 History (Tylenol Extra Strength) famotidine 20 mg tablet 20 mg PO DAILY PRN 08/30/21 08/30/21 History spironolactone 100 mg tablet 100 mg PO QAM 08/30/21 08/30/21 History Past Med/Surg History Medical History (Updated 08/30/21 @ 15:00 by Sherman Lozano MD) Fatty (change of) liver, not elsewhere classified Former smoker H/O gastroesophageal reflux (GERD) History of basal cell carcinoma Pancreatitis Skin cancer 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 Surgical History H/O Mohs micrographic surgery for skin cancer face S/P appendectomy S/P cholecystectomy S/P ERCP S/P hysterectomy S/P tonsillectomy Family History Father Prostate cancer Diabetes Sister Myocardial infarction Mother Diabetes Stroke Family/Other Diabetes Colorectal cancer Denies family history of Ovarian cancer Breast cancer Social History Smoking Status: Never smoker Tobacco Type: Cigarettes Age Started Using Tobacco: 18; Age Quit Using Tobacco: 22; packs per day: 0.5; Years Smoked: 4; Cigarettes Per Day: 1 ppwk; Number of Years Since Quit: 63; Second Hand Exposure: No; Hx Alcohol Use: No Hx Substance Use: No Preferred Language: Cypriot Communication Ability: Effective Visual Impairment: Limited Hearing Ability: Hard of Hearing 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 marital status: / Current Living Situation: Alone current occupational status: retired How many Children do You have: 2 Feels Safe at Home: Yes Childhood Exposure to Second-Hand Smoke: No caffeine: Yes during the past year weight has: remained stable Dental Care, Regularly: No Physical Activity Frequency: Does not Exercise Seatbelt Use: always Sunscreen Use: No Assistive Devices: Denture - Upper, Denture - Lower, Glasses and Walker Review of Systems Review of Systems: The patient denies chest pain, palpitations, shortness of breath, dyspnea on exertion, cough, sore throat, fevers, chills, sweats, vomiting, diarrhea , constipation, blood in urine or stool, dysuria, urinary frequency or urgency, lightheadedness, dizziness, headache, memory loss, loss of consciousness, rash, abnormal bruising or bleeding, imbalance, focal weakness, numbness or tingling in arms or legs, generalized arthralgias or myalgias, back or neck pain, or night sweats. The review of systems is otherwise negative other than for that already noted above, and at least 10 systems have been reviewed. Physical Exam Physical Exam: The patient is awake, alert and oriented 3, well developed and well nourished, normocephalic and atraumatic, lying in bed and in no acute distress. HEENT--PERRL, EOMI, mucous membranes and oropharynx mildly dry. Neck--supple. No JVD. No bruits. Thyroid normal, trachea midline, no adenopathy. Heart--normal S1 and S2. No murmurs, rubs or gallops. Lungs--clear bilaterally, no respiratory distress, no accessory muscle use. Abdomen--normal bowel sounds and soft. Nontender. Nondistended, no hernias or masses, no organomegaly. Extremities--no cyanosis or clubbing. 1+ bilateral pretibial pitting edema Dermatologic--skin is mildly dry Neurologic--cranial nerves II through XII grossly intact. Rheumatologic--normal range of motion. Psychiatric--normal affect. Results & Data Results & Data ([facility]) Vital Signs (Past 12 Hours) Vital Signs Temp Pulse Pulse Resp BP BP Pulse Ox 08/30/21 14:03 66 18 95 08/30/21 11:10 66 18 137/71 08/30/21 10:26 98.1 F 80 20 138/66 96 Laboratory Results Laboratory Results WBC 12.35 K/uL (4.8-10.8) H 08/30/21 11:15 RBC 3.86 M/uL (4.2-5.4) L 08/30/21 11:15 Hgb 12.5 g/dL (12.0-16.0) 08/30/21 11:15 Hct 35.2 % (37-47) L 08/30/21 11:15 MCV 91.2 fL (80-100) 08/30/21 11:15 MCH 32.4 pg (25-34) 08/30/21 11:15 MCHC 35.5 g/dL (32-36) 08/30/21 11:15 RDW Std Deviation 43.7 fL (36.4-46.3) 08/30/21 11:15 RDW Coeff of Timothy 13.1 % (11.5-14.5) 08/30/21 11:15 Plt Count 144 K/uL (130-400) 08/30/21 11:15 MPV 10.8 fL (7.4-10.4) H 08/30/21 11:15 Immature Gran % (Auto) 0.2 % 08/30/21 11:15 Neut % (Auto) 80.0 % 08/30/21 11:15 Lymph % (Auto) 10.0 % 08/30/21 11:15 [place] % (Auto) 6.4 % 08/30/21 11:15 Eos % (Auto) 3.2 % 08/30/21 11:15 Baso % (Auto) 0.2 % 08/30/21 11:15 Neut # (Auto) 9.89 K/uL (1.4-6.5) H 08/30/21 11:15 Lymph # (Auto) 1.24 K/uL (1.2-3.4) 08/30/21 11:15 [place] # (Auto) 0.79 K/uL (0.11-0.59) H 08/30/21 11:15 Eos # (Auto) 0.39 K/uL (0-0.5) 08/30/21 11:15 Baso # (Auto) 0.02 K/uL (0-0.2) 08/30/21 11:15 Immature Gran # (Auto) 0.02 K/uL (0.00-0.02) 08/30/21 11:15 Sodium 126 mmol/L (136-145) L 08/30/21 11:15 Potassium 5.4 mmol/L (3.5-5.1) H 08/30/21 11:15 Chloride 95 mmol/L (98-107) L 08/30/21 11:15 Carbon Dioxide 24 mmol/L (21-32) 08/30/21 11:15 Anion Gap 7.0 (3-11) 08/30/21 11:15 BUN 34 mg/dl (7-18) H 08/30/21 11:15 Creatinine 1.89 mg/dl (0.6-1.2) H 08/30/21 11:15 Est Cr Clr Drug Dosing 20.9 ml/min 08/30/21 11:15 Est GFR ( Amer) 27.8 ml/min 08/30/21 11:15 Est GFR (Non-Af Amer) 23.9 ml/min 08/30/21 11:15 BUN/Creatinine Ratio 17.8 (10-20) 08/30/21 11:15 Glucose 103 mg/dl (70-99) H 08/30/21 11:15 Calcium 10.4 mg/dl (8.5-10.1) H 08/30/21 11:15 Magnesium 2.1 mg/dl (1.8-2.4) 08/30/21 11:15 Total Bilirubin 0.5 mg/dl (0.2-1) 08/30/21 11:15 AST 16 U/L (15-37) 08/30/21 11:15 ALT 39 U/L (12-78) 08/30/21 11:15 Alkaline Phosphatase 122 U/L (45-117) H 08/30/21 11:15 Troponin I < 0.015 ng/ml (0-0.045) 08/30/21 11:15 NT-Pro-B Natriuret Pep 159 pg/ml (0-1800) 08/30/21 11:15 Total Protein 8.0 gm/dl (6.4-8.2) 08/30/21 11:15 Albumin 3.2 gm/dl (3.4-5.0) L 08/30/21 11:15 Globulin 4.8 gm/dl (2.5-4.0) H 08/30/21 11:15 Albumin/Globulin Ratio 0.7 (0.9-2) L 08/30/21 11:15 TSH 1.330 uIu/ml (0.300-4.500) 08/30/21 11:15 Urine Color Dark Yellow 08/30/21 Unknown Urine Appearance Cloudy (Clear) A 08/30/21 Unknown Urine pH 5.0 (4.5-7.5) 08/30/21 Unknown Ur Specific [place] 1.016 (1.000-1.030) 08/30/21 Unknown Urine Protein 2+ (Negative) H 08/30/21 Unknown Urine Glucose (UA) Negative (Negative) 08/30/21 Unknown Urine Ketones Trace (Negative) H 08/30/21 Unknown Urine Blood Trace (Negative) H 08/30/21 Unknown Urine Nitrite Negative (Negative) 08/30/21 Unknown Urine Bilirubin Negative (Negative) 08/30/21 Unknown Urine Urobilinogen Negative (Negative) 08/30/21 Unknown Ur Leukocyte Esterase 2+ (Negative) H 08/30/21 Unknown Urine WBC (Auto) >30 /hpf (0-5) H 08/30/21 Unknown Urine RBC (Auto) 0-4 /hpf (0-4) 08/30/21 Unknown U Hyaline Cast (Auto) 5-10 /lpf (0-5) H 08/30/21 Unknown U Epithel Cells (Auto) 20-30 /lpf (0-5) H 08/30/21 Unknown Urine Bacteria (Auto) 4+ (Negative) H 08/30/21 Unknown Calcium Oxalate Crystal Present (None Prsent) A 08/30/21 Unknown Granular Casts 1-5 /lpf (0) H 08/30/21 Unknown Waxy Casts 1-5 /lpf (0) H 08/30/21 Unknown COVID-19 Eval Order Covid19 at [facility] 08/30/21 11:15 SARS-CoV-2 (PCR) NEGATIVE (Negative) 08/30/21 11:15 Impressions Chest X-Ray 08/30/21 11:29 XR chest 1V portable HISTORY: 85 years-old Female weakness acute weakness COMPARISON: Chest radiograph 6 07/09/2012 TECHNIQUE: Portable AP view of the chest FINDINGS: Cardiomediastinal and hilar silhouettes are within normal limits. Calcified plaque of the thoracic aortic arch. No pneumothorax, pleural effusion, airspace consolidation or overt pulmonary edema. Coarsening of the interstitium is likely chronic. Degenerative changes of the shoulders and spine. IMPRESSION: Cardiomegaly without acute process. ACT 112: Negative or not required by law. The above report was generated using voice recognition software. It may contain grammatical, syntax or spelling errors. Electronically signed by: Sang Painter M.D. 08/30/2021 12:10 PM Code Status & VTE Plan Code Status Full code VTE Prophylaxis Plan VTE Prophylaxis will be ordered: Yes PG Care Time/CCT Total # of Minutes Spent Total Time Spent with Patient: Total time spent is greater than 50% in coordination of care (as documented) at patient's floor/unit and/or counseling patient: Coding Level of Care Code INT OBSERVATION CARE 70M LVL 3 Diagnoses Hypercholesterolemia E78.00 Hypertension I10 Hyponatremia E87.1 Hyperkalemia, diminished renal excretion E87.5 Hypothyroidism E03.9 Acute kidney injury N17.9
[2021-08-30] MEDS ORDERED: MECLIZINE 12.5 MG TAB PO PRN (17:10)
[2021-08-30] MEDS ORDERED: PROMETHAZINE HCL 25 MG TAB PO PRN (17:10)
[2021-08-30] MEDS ORDERED: DIPHENOXYLATE/ATROPINE 2.5/0.025MG TAB PO PRN (17:10)
[2021-08-30] MEDS ORDERED: ONDANSETRON INJ 2 MG/ML 2 ML VIAL IV PRN (17:10)
--- NOTE | 2021-08-30 17:26 | XCELERA ---
[id number]
--- NOTE | 2021-08-30 17:54 | Electrocardiogram Report ---
Test Reason : Blood Pressure : / mmHG Vent. Rate : 063 BPM Atrial Rate : 063 BPM P-R Int : 176 ms QRS Dur : 062 ms QT Int : 380 ms P-R-T Axes : 074 025 003 degrees QTc Int : 388 ms Poor data quality, interpretation may be adversely affected Normal sinus rhythm with sinus arrhythmia Low voltage QRS Borderline ECG When compared with ECG of 15-JUN-2016 15:33, QT has shortened Confirmed by Jose Angel Murphy ([id number]) on 08/30/2021 5:53:46 PM Referred By: Laurence Arvizu Confirmed By:Rod Murphy
[2021-08-30] MEDS: SODIUM CHLORIDE 0.9% 1000ML 1,000 ML IV SCH (18:03)
[2021-08-30] MEDS: ASCORBIC ACID 500 MG TAB PO SCH (20:30)
[2021-08-30] MEDS: ACETAMINOPHEN 325 MG TAB PO PRN (20:30)
[2021-08-30] MEDS: CALCIUM 600MG + VIT D 400 IU TAB PO SCH (20:30)
[2021-08-30] MEDS: GLUCOSAMINE SULFATE 500 MG CAP PO SCH (20:30)
[2021-08-30] MEDS: FAMOTIDINE 20 MG TAB PO SCH (20:31)
[2021-08-30] MEDS: HEPARIN SOD 5,000 UNIT/0.5 ML VIAL SQ SCH (20:31)
[2021-08-31 05:55] LABS: Basophils # (auto) 0.04 K/uL (0-0.2); Basophils % (auto) 0.5 %; Eosinophils # (auto) 0.63 K/uL (0-0.5); Eosinophils % (auto) 7.8 %; Hematocrit (blood only) 33.6 % (37-47); Hemoglobin 12.1 g/dL (12.0-16.0); Immature Granulocytes # (auto) 0.01 K/uL (0.00-0.02); Immature Granulocytes % (auto) 0.1 %; Lymphocytes # (auto) 1.55 K/uL (1.2-3.4); Lymphocytes % (auto) 19.1 %; Mean Corpuscular Hemoglobin 32.5 pg (25-34); Mean Corpuscular Volume 90.3 fL (80-100); Monocytes # (auto) 0.56 K/uL (0.11-0.59); Monocytes % (auto) 6.9 %; Neutrophils # (auto) 5.31 K/uL (1.4-6.5); Neutrophils % (auto) 65.6 %; Platelet Count 195 K/uL (130-400); Red Blood Count 3.72 M/uL (4.2-5.4)
[2021-08-31 06:29] LABS: Albumin Globulin Ratio 0.7 (0.9-2); Albumin Level 2.9 gm/dl (3.4-5.0); Bilirubin,Total 0.4 mg/dl (0.2-1); Calcium 9.3 mg/dl (8.5-10.1); Creatinine Clr Calc Pharmacy 33.4 ml/min; Est GFR (Non-African American) 42.3 ml/min; Globulin 4.4 gm/dl (2.5-4.0); Magnesium 1.9 mg/dl (1.8-2.4); Potassium 4.7 mmol/L (3.5-5.1); Total Protein 7.3 gm/dl (6.4-8.2)
[2021-08-31] MEDS: FEXOFENADINE 60 MG TAB PO SCH (08:55)
[2021-08-31] MEDS: ASPIRIN 81 MG ECTAB PO SCH (08:55)
[2021-08-31] MEDS: PRAVASTATIN SOD 40 MG TAB PO SCH (08:55)
[2021-08-31] MEDS: FAMOTIDINE 20 MG TAB PO SCH ×2 (08:55→20:47)
[2021-08-31] MEDS: CALCIUM 600MG + VIT D 400 IU TAB PO SCH ×2 (08:55→20:46)
[2021-08-31] MEDS: ASCORBIC ACID 500 MG TAB PO SCH ×2 (08:55→20:46)
[2021-08-31] MEDS: OMEGA-3 (PURIFIED FISH OIL) 1 GM CAP PO SCH (08:56)
[2021-08-31] MEDS: CEROVITE ADV FORMULA TAB PO SCH (08:56)
[2021-08-31] MEDS: GLUCOSAMINE SULFATE 500 MG CAP PO SCH ×2 (08:56→20:45)
[2021-08-31] MEDS: LEVOTHYROXINE SODIUM 75 MCG TABLET PO SCH (08:56)
[2021-08-31] MEDS: HEPARIN SOD 5,000 UNIT/0.5 ML VIAL SQ SCH ×2 (08:56→20:55)
[2021-08-31] MEDS ORDERED: SOLIFENACIN 5 MG PO SCH (09:00)
--- NOTE | 2021-08-31 09:49 | Hospitalist Progress Note ---
Date of Service August 31, 2021 Assessment & Plan (1) Acute kidney injury: Plan: with baseline of Chronic Kidney disease stage 3, pt recently did have outpt diuretic increased to do LE swelling in setting of MCPHERSON. She was also on a high salt diet, recommending stopping the diet and asses swelling ultrasound from 2020 does not suggest any ascites. Perhaps we may consider to confirm ascites prior to reinstituting diuretics. Patient also had an echocardiogram which did not show elevated right-sided heart pressures. Electrolyte abnormalities, hyponatremia and hyperkalemia, both have improved 08/31 Hold renal toxic medications, furosemide, ibuprofen, lisinopril and spironolactone isotonic saline , NSS at 60 mils per hour x2 L continue low-flow saline as creatinine improves (2) Hyperkalemia, diminished renal excretion: Plan: improved with hydration (3) Hypertension: Plan: creeping upward, will use hydralazine if needed (4) Hypercholesterolemia: Plan: Continue pravastatin 40 mg daily, last total cholesterol is 137, ldl 67 may need to consider discontinuing this (5) Hypothyroidism: Plan: TSH is appropriate, Continue levothyroxine 75 mcg daily Admission and Anticipated Discharge Date Admission Date: August 30, 2021 Subjective Patient feels somewhat better is still extremely weak and tired has focal complaints of significantly tender legs to examination. she is found to have urinary tract infection that is gram negative bacilli on preliminary eval Review of Systems Review of Systems: Mild distress and fatigue no headache, no visual changes no speech or swallowing issues no chest pain, pressure or palpitations no shortness of breath, cough or wheezes no abdominal pain, nausea or vomiting, diarrhea or constipation no dysuria, hematuria or frequency no focal joint pain minor bilateral lower extremity swelling and pain no back pain, CVA tenderness or radicular pain no bruising, bleeding or rashes no focal signs of weakness or numbness or altered sensation no complaints of anxiety or depression.. Physical Exam Physical Exam: The patient appeared chronically ill and frail Vital signs as documented. Head exam is normocephalic atraumatic Neck is without JVD, thyromegaly, or carotid bruits. Lungs are clear to auscultation, no focal loss of breath sounds Cardiac exam, Rhythm is regular.. No murmurs, rubs or gallops. Abdominal exam reveals normal bowel sounds, soft non tender, no masses shifting dullness Extremities are trace bilateral edema and both pedal pulses are present very tender to examination Neurologic exam is alert and oriented, no focal loss of strength or sensation Skin is without stasis changes some spider telangiectasias on her lower extremities and some minor erythematous plaques in a nondermatomal distribution Psychologically is without concerns for anxiety or depression Results & Data Results & Data ([facility]) Vital Signs (Past 12 Hours) Vital Signs Temp Pulse Pulse Resp BP Pulse Ox 08/31/21 07:45 97.5 F L 98 H 20 174/82 H 97 08/31/21 04:00 97.7 F 75 18 136/76 96 08/31/21 01:47 80 08/30/21 23:00 97.5 F L 80 18 135/78 94 PG Care Time/CCT Total # of Minutes Spent Total Time Spent with Patient: Total time spent is greater than 50% in coordination of care (as documented) at patient's floor/unit and/or counseling patient: Coding Level of Care Code 79024 Subseq Hosp Care Lvl 2 Diagnoses Acute kidney injury N17.9 Hyperkalemia, diminished renal excretion E87.5 Hypertension I10 Hypercholesterolemia E78.00 Hypothyroidism E03.9
[2021-08-31] MEDS: SODIUM CHLORIDE 0.9% 1000ML 1,000 ML IV SCH (10:59)
[2021-08-31] MEDS: ACETAMINOPHEN 325 MG TAB PO PRN (20:54)
[2021-09-01 06:26] LABS: Basophils # (auto) 0.06 K/uL (0-0.2); Basophils % (auto) 0.7 %; Eosinophils # (auto) 0.84 K/uL (0-0.5); Eosinophils % (auto) 10.2 %; Hematocrit (blood only) 33.5 % (37-47); Hemoglobin 11.7 g/dL (12.0-16.0); Immature Granulocytes # (auto) 0.02 K/uL (0.00-0.02); Immature Granulocytes % (auto) 0.2 %; Lymphocytes # (auto) 1.71 K/uL (1.2-3.4); Lymphocytes % (auto) 20.8 %; Mean Corpuscular Hemoglobin 32.2 pg (25-34); Mean Corpuscular Hgb Conc 34.9 g/dL (32-36); Mean Corpuscular Volume 92.3 fL (80-100); Mean Platelet Volume 8.8 fL (7.4-10.4); Monocytes # (auto) 0.59 K/uL (0.11-0.59); Monocytes % (auto) 7.2 %; Neutrophils % (auto) 60.9 %; Platelet Count 187 K/uL (130-400); RDW Standard Deviation 44.3 fL (36.4-46.3); Red Blood Count 3.63 M/uL (4.2-5.4); White Blood Count 8.22 K/uL (4.8-10.8)
[2021-09-01 07:00] LABS: Albumin Globulin Ratio 0.6 (0.9-2); Albumin Level 2.6 gm/dl (3.4-5.0); BUN Creatinine Ratio 18.9 (10-20); Bilirubin,Total 0.3 mg/dl (0.2-1); Calcium 9.2 mg/dl (8.5-10.1); Creatinine Clr Calc Pharmacy 44.6 ml/min; Est GFR (African American) 69.9 ml/min; Est GFR (Non-African American) 60.3 ml/min; Globulin 4.1 gm/dl (2.5-4.0); Potassium 4.5 mmol/L (3.5-5.1); Total Protein 6.7 gm/dl (6.4-8.2)
--- NOTE | 2021-09-01 08:34 | Ultrasound Report ---
US abdomen ltd ascites CLINICAL HISTORY: asses for ascites, h/o nonalcoholic steatohepatitis. Abdominal distention. COMPARISON STUDY: Abdomen and pelvis CT 05/13/2017. FINDINGS: Real-time sonographic imaging of the abdomen was performed with provider relations representative images submi tted. No ascites identified. Hepatic steatosis is noted. IMPRESSION: 1. No ascites. 2. Hepatic steatosis. ACT 112: Negative or not required by law. Electronically signed by: Michael Lay M.D. 09/01/2021 8:33 AM
[2021-09-01] MEDS: OMEGA-3 (PURIFIED FISH OIL) 1 GM CAP PO SCH (09:27)
[2021-09-01] MEDS: FAMOTIDINE 20 MG TAB PO SCH ×2 (09:27→20:43)
[2021-09-01] MEDS: CEROVITE ADV FORMULA TAB PO SCH (09:27)
[2021-09-01] MEDS: PRAVASTATIN SOD 40 MG TAB PO SCH (09:27)
[2021-09-01] MEDS: HEPARIN SOD 5,000 UNIT/0.5 ML VIAL SQ SCH ×2 (09:28→20:45)
[2021-09-01] MEDS: ASPIRIN 81 MG ECTAB PO SCH (09:28)
[2021-09-01] MEDS: GLUCOSAMINE SULFATE 500 MG CAP PO SCH ×2 (09:28→20:43)
[2021-09-01] MEDS: CALCIUM 600MG + VIT D 400 IU TAB PO SCH ×2 (09:28→20:43)
[2021-09-01] MEDS: ASCORBIC ACID 500 MG TAB PO SCH ×2 (09:28→20:44)
[2021-09-01] MEDS: FEXOFENADINE 60 MG TAB PO SCH (09:28)
[2021-09-01] MEDS: LEVOTHYROXINE SODIUM 75 MCG TABLET PO SCH (09:29)
[2021-09-01] MEDS: ACETAMINOPHEN 325 MG TAB PO PRN ×2 (09:34→20:51)
[2021-09-01] MEDS: AMOXICILLIN 500 MG CAP PO SCH ×2 (13:10→20:43)
--- NOTE | 2021-09-01 19:34 | Hospitalist Progress Note ---
Date of Service September 01, 2021 Assessment & Plan (1) Acute kidney injury: Plan: with baseline of Chronic Kidney disease stage 3, pt recently did have outpt diuretic increased to do LE swelling in setting of MCPHERSON. She was also on a high salt diet, recommending stopping the diet and asses swelling ultrasound from 2019 does not suggest any ascites. Perhaps we may consider to confirm ascites prior to reinstituting diuretics. Patient also had an echocardiogram which did not show elevated right-sided heart pressures or mention of diastolic dysfunction Electrolyte abnormalities, hyponatremia and hyperkalemia, both have improved 08/31 Hold renal toxic medications, furosemide, ibuprofen, lisinopril and spironolactone isotonic saline , NSS at 60 mils per hour x2 L continue low-flow saline as creatinine improves (2) Hyperkalemia, diminished renal excretion: Plan: improved with hydration (3) Hypertension: Plan: controlled without meds at this time (4) Hypercholesterolemia: Plan: Continue pravastatin 40 mg daily, last total cholesterol is 137, ldl 67 may need to consider discontinuing this (5) Hypothyroidism: Plan: TSH is appropriate, Continue levothyroxine 75 mcg daily Admission and Anticipated Discharge Date Admission Date: September 01, 2021 Subjective Patient feels much improved today. Her leg pain is also resolved. She is going to attempt to try some elastic FORTINO hose to try to reduce her lower extremity swelling. Abdominal ultrasound did not show any ascites to be consistent with liver disease as was initially suggested. Also as mentioned echocardiogram does not show elevated right-sided heart pressures. Review of Systems Review of Systems: Improving distress and fatigue no headache, no visual changes no speech or swallowing issues no chest pain, pressure or palpitations no shortness of breath, cough or wheezes no abdominal pain, nausea or vomiting, diarrhea or constipation no dysuria, hematuria have some frequency no focal joint pain continues with minor bilateral lower extremity swelling and pain no back pain, CVA tenderness or radicular pain no bruising, bleeding or rashes no focal signs of weakness or numbness or altered sensation no complaints of anxiety or depression.. Physical Exam Physical Exam: The patient appeared chronically ill and frail Vital signs as documented. Head exam is normocephalic atraumatic Neck is without JVD, thyromegaly, or carotid bruits. Lungs are clear to auscultation, no focal loss of breath sounds Cardiac exam, Rhythm is regular.. No murmurs, rubs or gallops. Abdominal exam reveals normal bowel sounds, soft non tender, no masses shifting dullness Extremities remain with trace bilateral edema and both pedal pulses are present very tender to examination Neurologic exam is alert and oriented, no focal loss of strength or sensation Skin is without stasis changes some spider telangiectasias on her lower extremities and some minor erythematous plaques in a nondermatomal distribution Psychologically is without concerns for anxiety or depression Results & Data Results & Data ([facility]) Vital Signs (Past 12 Hours) Vital Signs Temp Pulse Pulse Resp BP Pulse Ox 09/01/21 16:31 89 09/01/21 11:03 98.1 F 76 20 117/80 94 09/01/21 08:00 74 09/01/21 07:56 97.3 F L 72 18 159/84 H 95 PG Care Time/CCT Total # of Minutes Spent Total Time Spent with Patient: Total time spent is greater than 50% in coordination of care (as documented) at patient's floor/unit and/or counseling patient: Coding Level of Care Code 63838 Subseq Hosp Care Lvl 2 Diagnoses Acute kidney injury N17.9 Hyperkalemia, diminished renal excretion E87.5 Hypertension I10 Hypercholesterolemia E78.00 Hypothyroidism E03.9
[2021-09-02 06:51] VITALS: TEMP 97.7
[2021-09-02 07:05] LABS: Basophils # (auto) 0.05 K/uL (0-0.2); Basophils % (auto) 0.6 %; Eosinophils # (auto) 1.11 K/uL (0-0.5); Hematocrit (blood only) 33.8 % (37-47); Immature Granulocytes # (auto) 0.03 K/uL (0.00-0.02); Immature Granulocytes % (auto) 0.4 %; Lymphocytes # (auto) 1.73 K/uL (1.2-3.4); Lymphocytes % (auto) 20.3 %; Mean Corpuscular Hemoglobin 32.1 pg (25-34); Mean Corpuscular Hgb Conc 35.5 g/dL (32-36); Mean Corpuscular Volume 90.4 fL (80-100); Mean Platelet Volume 8.9 fL (7.4-10.4); Monocytes # (auto) 0.57 K/uL (0.11-0.59); Monocytes % (auto) 6.7 %; Neutrophils # (auto) 5.05 K/uL (1.4-6.5); Platelet Count 205 K/uL (130-400); RDW Standard Deviation 43.2 fL (36.4-46.3); Red Blood Count 3.74 M/uL (4.2-5.4); White Blood Count 8.54 K/uL (4.8-10.8)
[2021-09-02 07:25] LABS: Albumin Level 2.8 gm/dl (3.4-5.0); BUN Creatinine Ratio 16.4 (10-20); Calcium 9.3 mg/dl (8.5-10.1); Creatinine Clr Calc Pharmacy 48.2 ml/min; Est GFR (African American) 77.3 ml/min; Est GFR (Non-African American) 66.7 ml/min; Magnesium 1.8 mg/dl (1.8-2.4); Potassium 4.5 mmol/L (3.5-5.1)
[2021-09-02 07:27] LABS: Albumin Globulin Ratio 0.7 (0.9-2); Bilirubin,Total 0.3 mg/dl (0.2-1); Globulin 4.3 gm/dl (2.5-4.0); Total Protein 7.1 gm/dl (6.4-8.2)
[2021-09-02] MEDS: HEPARIN SOD 5,000 UNIT/0.5 ML VIAL SQ SCH (08:43)
[2021-09-02] MEDS: ASCORBIC ACID 500 MG TAB PO SCH (08:45)
[2021-09-02] MEDS: PRAVASTATIN SOD 40 MG TAB PO SCH (08:45)
[2021-09-02] MEDS: CEROVITE ADV FORMULA TAB PO SCH (08:45)
[2021-09-02] MEDS: FEXOFENADINE 60 MG TAB PO SCH (08:45)
[2021-09-02] MEDS: ASPIRIN 81 MG ECTAB PO SCH (08:45)
[2021-09-02] MEDS: GLUCOSAMINE SULFATE 500 MG CAP PO SCH (08:46)
[2021-09-02] MEDS: CALCIUM 600MG + VIT D 400 IU TAB PO SCH (08:46)
[2021-09-02] MEDS: FAMOTIDINE 20 MG TAB PO SCH (08:46)
[2021-09-02] MEDS: OMEGA-3 (PURIFIED FISH OIL) 1 GM CAP PO SCH (08:46)
[2021-09-02] MEDS: AMOXICILLIN 500 MG CAP PO SCH ×2 (08:47→13:18)
[2021-09-02] MEDS: LEVOTHYROXINE SODIUM 75 MCG TABLET PO SCH (08:49)
[2021-09-02] MEDS: ACETAMINOPHEN 325 MG TAB PO PRN (08:59)
[2021-09-02] MEDS ORDERED: SODIUM CHLORIDE 1 GM TABLET PO ONE (09:45)
[2021-09-02 11:37] VITALS: PULSE 73; O2SAT 94
[2021-09-02 14:26] VITALS: BP 143/80
--- NOTE | 2021-09-02 19:09 | Discharge Summary ---
Date of Service September 02, 2021 Admission HPI Per Admitting Provider The patient is an 85-year-old female past medical history including diabetes mellitus, diabetic neuropathy, hypercholesterolemia, hypertension, hyponatremia, irritable bowel syndrome, midline cystocele, rectocele, vitamin D deficiency and hypothyroidism. Patient reports from a dietary perspective she is not able to eat many of the foods that are good for due to her IBS, so she has been eating a lot of highly salted foods such as hams and cold cuts. Emergency department abnormal laboratories: Sodium 126, potassium 5.4, BUN 34, creatinine 1.9, albumin 3.2, calcium 10.4, WBC 12.35. Chest x-ray shows mild cardiomegaly Principal Diagnosis Acute kidney injury on chronic kidney disease stage III resolved E. coli urinary tract infection present on admission Hyponatremiapersistent Discharge Exam The patient appeared well Vital signs as documented. Lungs are clear to auscultation and appear unlabored Cardiac exam, Rhythm is regular.. No murmurs, rubs or gallops. Abdominal exam reveals normal bowel sounds, soft non tender, no masses Extremities are trace edematous bilaterally and both pedal pulses are normal. Neurologic exam is alert and oriented, no focal loss of strength or sensation Skin is without bruises or rashes Psychologically is without concerns for anxiety or depression. Discharge Data Allergies Allergy/AdvReac Type Severity Reaction Status Date / Time No Known Drug Allergies Allergy Verified 08/30/21 12:34 lactose AdvReac Unknown Unknown Verified 08/31/21 15:19 Consultations 08/30/21 13:45 ED Decision to Admit Stat Ordered Studies 09/01/21 07:21 US abdomen ltd ascites Routine Hospital Course (1) Acute kidney injury: with baseline of Chronic Kidney disease stage 3, pt recently did have outpt diuretic increased to do LE swelling in setting of [place]. She was also on a high salt diet, recommending stopping the diet and asses swelling ultrasound from 2019 does not suggest any ascites. Repeat ultrasound abdomen did not show any ascites or cirrhotic architecture of her liver patient also had an echocardiogram which did not show elevated right-sided heart pressures or mention of diastolic dysfunction Electrolyte abnormalities, hyponatremia and hyperkalemia, both have improved 08/31 however hyponatremia persists patient states this is a longstanding issue for Hold renal toxic medications, furosemide, ibuprofen, lisinopril and spironolactone at the time of discharge The patient return to her home diet not just drink plain water to guard against hyponatremia and have outpatient laboratories checked. (2) Hyperkalemia, diminished renal excretion: improved with hydration (3) Hypertension: controlled without meds at this time (4) Hypercholesterolemia: Continue pravastatin 40 mg daily, last total cholesterol is 137, ldl 67 may need to consider discontinuing this (5) Hypothyroidism: TSH is appropriate, Continue levothyroxine 75 mcg daily Patient feels much improved today. Many of her home medications. We did assessments for volume overload with both echocardiogram and abdominal ultrasound looking for ascites or liver architecture changes or portal vein hypertensive changes these were not seen. Subsequently the patient is discharged home in a watchful waiting mode to both have her sodium checked but also volume her volume status similar extremity swelling. Total Time Total Time Spent Total Time Spent (In Minutes): It required greater than 30 minutes to prepare this patient for discharge Discharge Plan Discharge Items Patient Disposition: Home - Self-Care Reason For Visit: TESSY, HYPONATREMIA, HYPERKALEMIA Discharge Diagnosis: hyponatremia lower extremity swelling acute kidney injury that has resolved Activity: Resume your previous activity Non-emergency contact: Primary Care Provider Call non-emergency contact if: you have any medication questions Follow-up/Referrals: Dakota Lopez III, CRNP [Primary Care Provider] - 09/12/21 9:20 am Diet: Regular Addtl Attending Provider Instructions: please finish all of your antibiotics avoid just drinking plain water, you can have water just also alternate in other beveridges please consider adding a dietary supplement such as a protein powder to pudding or yogurt, or use pre made supplents such as ensure or boost limit ibuprofen to no more that 3, 200mg pills a day WEIGHT * Weigh yourself every morning after using the bathroom. * Use the same scale. * Wear the same amount of clothing. * Write your weight down on your chart. * Call your doctor if you gain more than 2-3 pounds in 1-2 days. * Be sure all of your doctors know what medicine and herbs you take (including cold, flu, and herbal medicine). Take the following with you to your follow-up doctor appointments: * Weight Chart * Medication List * List of questions Do not drink excessive alcohol, beer or wine. Pending Studies at Discharge: No Stand-Alone Forms: My [employer], Smoking Cessation Medications and DC Order Prescriptions: New amoxicillin 500 mg Capsule 500 mg PO TID Qty: 12 RF: 0 Continued (DME) OneTouch Ultra Blue Test Strip Strip See Rx Instructions .ROUTE .MEDSUPPLY Qty: 300 RF: 1 solifenacin [Vesicare] 5 mg tablet 5 mg PO DAILY Qty: 90 RF: 3 levothyroxine 75 mcg tablet 75 mcg PO DAILY Qty: 90 RF: 1 pravastatin 40 mg tablet 40 mg PO DAILY Qty: 90 RF: 1 meclizine 12.5 mg tablet 12.5 mg PO TID PRN (Reason: dizziness) Qty: 60 RF: 1 betamethasone dipropionate 0.05 % cream 1 appln TOP DAILY PRN (Reason: rash) Qty: 45 RF: 0 multivitamin with iron [Daily Multiple Vitamins/Iron] tablet 1 tab PO DAILY RF: 0 omega-3 fatty acids-fish oil [Fish Oil] 360-1,200 mg capsule 1 cap PO DAILY RF: 0 calcium carbonate-vit D3-min 600 mg calcium- 400 unit tablet 1 tab PO BID RF: 0 aspirin [Adult Low Dose Aspirin] 81 mg tablet,delayed release (DR/EC) 81 mg PO DAILY RF: 0 glucosamine sulfate 1,000 mg capsule 1,000 mg PO BID RF: 0 cranberry extract 650 mg capsule 1,300 mg PO DAILY RF: 0 fexofenadine [Allergy Relief (fexofenadine)] 60 mg tablet 60 mg PO DAILY RF: 0 diclofenac sodium [Voltaren] 1 % gel 4 g topical QID PRN (Reason: Joint Pain) Qty: 100 RF: 1 ascorbate calcium (vitamin C) 500 mg tablet 500 mg PO BID RF: 0 chlordiazepoxide HCl 5 mg capsule 5 mg PO TID PRN (Reason: anxiety) Qty: 90 RF: 2 diphenoxylate-atropine 2.5-0.025 mg tablet 1 tab PO TID PRN (Reason: diarrhea) Qty: 90 RF: 2 fluocinonide 0.05 % cream 1 applic TOP BID Qty: 30 RF: 2 promethazine 12.5 mg tablet 12.5 mg PO TID PRN (Reason: nausea and vomiting) Qty: 90 RF: 2 acetaminophen [Tylenol Extra Strength] 500 mg Tablet 500 mg PO Q6H PRN (Reason: Pain) RF: 0 famotidine 20 mg tablet 20 mg PO DAILY PRN (Reason: gastric upset) RF: 0 Changed ibuprofen 200 mg capsule 200 mg PO TID Qty: 0 RF: 0 Discontinued lisinopril 20 mg tablet 20 mg PO DAILY Qty: 90 RF: 1 furosemide [Lasix] 40 mg tablet 60 mg PO DAILY RF: 0 spironolactone 100 mg tablet 100 mg PO QAM RF: 0 Discharge Orders: Discharge Order (Routine); Ordered 09/02/21 Ordered By: Helio Maguire/Other Patient Handouts: Low Salt Diet Dc Admission Data Admit Date/Time: 09/01/21 12:14 Attending Provider: Helio aSles Admit Provider: Sherman Lozano Primary Care Provider: Dakota Lopez III Other Providers: Sherman Lozano Other Interventions: Discharge Summary Assessment (RN) Last Done: 09/02/21 14:24 Coding Level of Care Code D/C DAY MANAGEMENT >30 MINS Diagnoses Acute kidney injury N17.9 Hyperkalemia, diminished renal excretion E87.5 Hypertension I10 Hypercholesterolemia E78.00 Hypothyroidism E03.9
== END 2021-09-02 15:47 | disposition home or self-care (01) | DRG 683 ==
LOC: ED 10:20 → 2W 10:20 → SUATTDRO 14:49 → 2W 15:54
DX: Z79.890 Hormone replacement therapy; Z79.899 Other long term (current) drug therapy; E11.40 Type 2 diabetes mellitus with diabetic neuropathy, unspecified; E87.5 Hyperkalemia; E87.1 Hypo-osmolality and hyponatremia; Z87.891 Personal history of nicotine dependence; I10 Essential (primary) hypertension; N81.6 Rectocele; Z85.828 Personal history of other malignant neoplasm of skin; K58.9 Irritable bowel syndrome, unspecified; Z79.82 Long term (current) use of aspirin; N81.10 Cystocele, unspecified; K76.0 Fatty (change of) liver, not elsewhere classified; N39.0 Urinary tract infection, site not specified; N17.9 Acute kidney failure, unspecified; B96.20 Unspecified Escherichia coli [E. coli] as the cause of diseases classified elsewhere; E03.9 Hypothyroidism, unspecified; R53.1 Weakness; E55.9 Vitamin D deficiency, unspecified; E78.00 Pure hypercholesterolemia, unspecified

== ENCOUNTER 2024-11-19 19:39 | Inpatient (IN) ==
--- OUTSIDE RECORDS SUMMARY | 2024-11-19 19:44 | External Medical Summary | Summary of Care ---
Author Name Unknown Organization [facility] Address [address] [facility] [address] Phone [phone] Care Team Providers Care Paper Folding Machine Operator Name Role Phone Dakota Lopez Primary Care Provider Encounter Details Date Type Department Care Team (Late st Contact Info) Description 11/13/2024 Orders Only Gastroenterology [address] [place] [address] Laurence Arvizu CRNP [address] [place] [address] Cirrhosis of liver without ascites, unspecified hepatic cirrhosis type (HCC)* Allergies Active Allergy Reactions Criticality Noted Date Comments Lactose 11/12/2024 documented as of this encounter (statuses as of 11/13/2024) Medications lisinopril (PRINIVIL) 20 MG Tablet Take 1 Tablet by mouth in the morning. Active diphenoxylate-atr opine 2.5-0.025 mg per tab (LOMOTIL) 2.5-0.025 MG Tablet Take 1 Tablet by mouth 4 times a day as needed for Diarrhea. Active pravastatin (PRAVACHOL) 40 MG Tablet Take 1 Tablet by mouth in the morning. Active meclizine (ANTIVERT) 12.5 MG Tablet Take 1 Tablet by mouth 3 times a day as needed. Active Multiple Vitamin (MULTIVITAMINS) Capsule Take 1 Capsule by mouth in the morning. Active [place]-3 Fatty Acids (FISH OIL) 1000 MG Capsule Take 1 Capsule by mouth in the morning. Active Ascorbic Acid (VITAMIN C) 500 MG CAPS Take 1,000 mg by mouth daily. Active Aspirin 81 MG Tablet Take 1 Tablet by mouth in the morning. Active guaiFENesin ER 600 MG Oral Tablet Extended Release 12 Hour Take 1 Tablet by mouth in the morning and 1 Tablet before bedtime. Active fexofenadine (BHAVIN) 60 MG Tablet Take 1 Tablet by mouth in the morning. Active Calcium Carbonate-Vitamin D (CALCIUM-VITAMIN D) 250-125 MG-UNIT TABS Take 1 Tab by mouth daily. 500 mg off calcium and 400iu of vitamin d - twice a day Active fluticasone (FLONASE) 50 MCG/ACT nasal spray Administer 1 [place] into nostril in the morning. Active chlordiazePOXIDE (LIBRIUM) 5 MG Capsule Take 1 Capsule by mouth 3 times a day as needed. Active Misc. Devices (AIRGO ROLLING WALKER) MISC One rolling walker 1 Each 0 6 Active Ibuprofen 200 MG Capsule Take 1 Capsule by mouth every 4 hours as needed for Pain. Active Glucosamine HCl 1000 MG Tablet Take 1 Tablet by mouth in the morning and 1 Tablet before bedtime. Active AUG BETAMETHASONE DIPROPIONATE (DIPROLENE AF) 0.05 % cream Apply topically to affected area 2 times a day. Apply to toe as needed Active Fluocinonide 0.05 % cream Apply topically to affected area 2 times a day. Apply to toes as needed Active Cranberry 300 MG TABS Take by mouth 2 times a day. Active Solifenacin Succinate 5 MG Oral Tablet Take 1 Tablet by mouth in the morning. Active famotidine (PEPCID) 20 MG Tablet Take 1 Tab by mouth daily. 30 Tab 3 0 Active Levothyroxine Sodium 75 MCG Oral Tablet (LEVOXYL) daily. Reports she take 88mcg now 0 Active Promethazine HCl 12.5 MG Oral Tablet (PHENERGAN) Take 1 Tab by mouth every 8 hours as needed for Nausea. 30 Tab 3 0 Active Diclofenac Sodium 1 % External Gel Apply topically to affected area 4 times a day as needed for Pain (neuropathy). Apply to feet 4 times a day as needed. Active Gabapentin 300 MG Oral Capsule (Neurontin) 2 Active Furosemide 40 MG Oral Tablet (Lasix)Indication s:Cirrhosis of liver (HCC) TAKE 1 TABLET BY MOUTH ONCE DAILY 90 Tablet 1 4 Active Spironolactone 50 MG Oral Tablet (Aldactone) Take 1 Tablet by mouth in the morning. 30 Tablet 2 4 Active documented as of this encounter (statuses as of 11/13/2024) Active Problems Problem Noted Date Diagnosed Date Hypothyroidism 06/16/2016 HTN, goal below 150/90 06/16/2016 DM type 2, goal: symptom mgmt 06/16/2016 HLD (hyperlipidemia) 06/16/2016 Gram-negative bacteremia 06/16/2016 Acute biliary pancreatitis 06/16/2016 Gallstone pancreatitis 06/16/2016 Ascending cholangitis 06/16/2016 DM type 2, goal: symptom mgmt 03/06/2016 HTN, goal: symptom mgmt only 03/06/2016 Thyroid disease 03/06/2016 documented as of this encounter (statuses as of 11/13/2024) Immunizations Name Administration Dates Next Due Season Influenza, Quad, PF, Adjuvanted, 65+ Yrs, IM (FLUAD) 08/07/2021 Seasonal Influenza, Trivalen t, Adjuvanted, 65+ YRS, PF, (Fluad) 08/03/2020 documented as of this encounter Social History Tobacco Use Types Packs/Day Years Used Date Smoking Tobacco: Former Cigarettes Smokeless Tobacco: Never Comments:Quit in 1956 Alcohol Use Standard Drinks/Week Comments No 0 (1 standard drink = 0.6 oz pur e alcohol) Comments No Sex and Gender Information Value Date Recorded Sex Assigned at Not on file Legal Sex Female 7:13 AM EST Gender Identity Not on file Sexual Orientation Not on file documented as of this encounter Functional Status * Are you deaf or do you have serious difficulty hearing? Answer Date of Assessment Author No 06/16/2016 8:58 PM Chrissy Lobo RN * Are you blind or do you have serious difficulty seeing, even when wearing glasses? Answer Date of Assessment Author No 06/16/2016 8:58 PM Chrissy Lobo RN * Do you have serious difficulty walking or climbing stairs? (5 years old or older) Answer Date of Assessment Author No 06/16/2016 8:58 PM EDT Chrissy Tracy RN * Do you have difficulty dressing or bathing? (5 years old or older) Answer Date of Assessment Author No 06/16/2016 8:58 PM EDT Chrissy Tracy RN * Because of a physical, mental, or emotional condition, do you have difficulty doing errands alone such as visiting a doctors office or shopping? (15 years old or older) Answer Date of Assessment Author No 06/16/2016 8:58 PM EDT Chrissy Tracy RN documented as of this encounter Mental Status * Because of a physical, mental, or emotional condition, do you have serious difficulty concentrating, remembering, or making decisions? (5 years old or older) Answer Entry Date Author No 06/16/2016 8:58 PM EDT Chrissy Tracy RN documented in this encounter Plan of Treatment Upcoming Encounters Date Type Department Care Team (Late st Contact Info) Description 03/03/2025 1:00 PM EDT [facility] [place] [address] Laurence Arvizu CRNP [address] [place] [address] Scheduled Orders Name Type Priority Associated Diagnoses Orde r Schedule BASIC METABOLIC PANEL Lab Routine Cirrhosis of liver without ascites, unspecified hepatic cirrhosis type (HCC) Expected: 11/20/2024, Expires: 11/13/2025 Scheduled Procedures Name Priority Associated Diagnoses Date/Ti me ESOPHAGOGASTRODUODENOSCOPY ( EGD), FLEXIBLE, TRANSORAL, DIAGNOSTIC Recall Cirrhosis (HCC) Health Maintenance Due Date Last Done Comments DXA Scan 1936 Depression Screening 1948 Diabetic Eye Exam 1954 Diabetic Foot Exam 1954 Zoster Vaccines (1 of 2) 1986 Albumin/Creatinine Ratio 08/03/2023 08/03/2022, 02/23 COVID-19 Vaccine ( season) 2024 09/13/2023, 04/20/2022, 09/08/2021, Additional history exists Influenza Vaccine (FLU shot) (#1) 2024 08/07/2021, 08/03/2020, 08/03/2020, Additional history exists HbA1c 02/03/2025 08/06/2024, 07/26, 08/03/2022, Additional history exists TSH 07/06/2025 07/06/2024, 07/26, 08/03/2022, Additional history exists DTap/Tdap Vaccines (2 - Td or Tdap) 08/05/2030 08/05/2020 Pneumococcal Vaccine: 65+ Years Completed 07/23/2022, 08/03/2020, 03/29/2015 HPV (Gardasil) Vaccine Aged Out No lo nger eligible based on patient's age to complete this topic Hepatitis B Vaccine Aged Out No longe r eligible based on patient's age to complete this topic MENINGOCOCCAL (MENACTRA/MENVEO) Aged Out No longer eligible based on patient's age to complete this topic documented as of this encounter Medical Devices Not on filedocumented as of this encounter Visit Diagnoses Diagnosis Cirrhosis of liver without ascites, unspecified hepatic cirrhosis type (HCC)- Primary documented in this encounter Advance Directives Documents on File Type Date Recorded Patient Molder Floor Expl anation Advance Directives and Livin g Will 02/12/2005 ADVANCE DIRECTIVE * Full Code (Latest Code Status on File) Date Activated Date Inactivated Comments 06/16/2016 6:57 PM 06/21/2016 6:07 PM This order r eflects the patients wishes and were consensually agreed upon. Question Answer Comments Discussion of Advance Directives occurred with: Patient Does the patient have a Living Will? No Does the patient have Health Care Power of Attor chel? No Care Teams Paper Folding Machine Operator Relationship Specialty Start Date End Date Dakota Lopez CRNP PCP - General Nurse Practitioner 06/12/17 documented as of this encounter
--- OUTSIDE RECORDS SUMMARY | 2024-11-19 19:44 | External Medical Summary ---
Author Name Unknown Address Unknown Organization [id number]:[facility] [place] [facility] [address] [place] [address] Laboratory Report Ordering Provider Test Date Status KEITHAUGUSTO 11/12/2024 14:12:16 Final Observation Date Value Abnormality Reference (Units ) Status Alpha-Fetoprotein 11/12/2024 14:12:16 3.9 0. 0-8.3 (ng/mL) Final Performing Location [facility] - [address] [place] [address]
--- OUTSIDE RECORDS SUMMARY | 2024-11-19 19:44 | External Medical Summary | Summary of Care ---
Author Name Unknown Organization [facility] Address [address] [facility] [place] [address] Phone [phone] Care Team Providers Care Commercial Loan Underwriter Name Role Phone John Dakota FERRARI Primary Care Provider + [phone] Encounter Details Date Type Department Care Team (Late st Contact Info) Description 11/16/2024 Orders Only PATIENT PORTAL DO NOT DELETE THIS DEPT USED BY [place] [id number] Allergies Active Allergy Reactions Criticality Noted Date Comments Lactose 11/12/2024 documented as of this encounter (statuses as of 11/16/2024) Medications lisinopril (PRINIVIL) 20 MG Tablet Take [...] Capsule by mouth in the morning. Active [place]-3 Fatty Acids (FISH OIL) 1000 MG Capsule [...] (FLONASE) 50 MCG/ACT nasal spray Administer 1 [place] into nostril in the morning. Active chlordiazePOXIDE [...] as of this encounter (statuses as of 11/16/2024) Active Problems Problem Noted Date Diagnosed Date Hypothyroidism 06/16/2016 HTN, goal below 150/90 06/16/2016 DM type 2, goal: symptom mgmt 06/16/2016 HLD (hyperlipidemia) 06/16/2016 Gram-negative bacteremia 06/16/2016 Acute biliary pancreatitis 06/16/2016 Gallstone pancreatitis 06/16/2016 Ascending cholangitis 06/16/2016 DM type 2, goal: symptom mgmt 03/06/2016 HTN, goal: symptom mgmt only 03/06/2016 Thyroid disease 03/06/2016 documented as of this encounter (statuses as of 11/16/2024) Immunizations Name Administration Dates Next Due Season [...] Chrissy Lobo RN * Do you have difficulty dressing or bathing? (5 years old or older) Answer Date of Assessment Author No 06/16/2016 8:58 PM Chrissy Lobo RN * Because of a physical, mental, [...] 03/03/2025 1:00 PM EDT Office Visit Gastroenterology, [facility] [address] [place] [address] Laurence Arvizu CRNP [address] [place] [address] Scheduled Procedures Name Priority Associated Diagnoses Date/Ti [...] Not on filedocumented as of this encounter Advance Directives Documents on File Type Date Recorded Patient Grey Goods Examiner Expl anation Advance Directives and Livin g [...] Power of Attor chel? No Care Teams Commercial Loan Underwriter Relationship Specialty Start Date End Date Dakota Lopez CRNP PCP - General Nurse Practitioner 06/12/17 documented as of this encounter
--- OUTSIDE RECORDS SUMMARY | 2024-11-19 19:44 | External Medical Summary | Summary of Care ---
Author Name Unknown Organization [facility] Address [address] [address] Phone [phone] Care Team Providers Care Coal Feeder Operator Name Role Phone YaronDakota moore Lyla FERRARI Primary Care Provider [phone] Reason for Visit * Reason Comments Follow Up Pt reports that she has (B) LLE swelling Encounter Details Date Type Department Care Team (Late st Contact Info) Description 11/12/2024 1:30 PM EST Office Visit Gastroenterology, [facility] [address] [place] [place] [id number] Laurence Arvizu CRNP [address] [place] [id number] Generalized edema*; Cirrhosis of liver without ascites, unspecified hepatic cirrhosis type (HCC) Allergies Active Allergy Reactions Criticality Noted Date Comments Lactose 11/12/2024 documented as of this encounter (statuses as of 11/12/2024) Medications lisinopril (PRINIVIL) 20 MG Tablet Take 1 Tablet by mouth in the morning. Active diphenoxylate-at ropine 2.5-0.025 mg per tab (LOMOTIL) 2.5-0.025 MG [...] Capsule by mouth in the morning. Active [place]-3 Fatty Acids (FISH OIL) 1000 MG Capsule [...] by mouth in the morning. Active Calcium Carbonate-Vitami n D (CALCIUM-VITAMIN D) 250-125 MG-UNIT TABS Take 1 Tab by mouth daily. 500 mg off calcium and 400iu of vitamin d - twice a day Active fluticasone (FLONASE) 50 MCG/ACT nasal spray Administer 1 Orange into nostril in the morning. Active chlordiazePOXIDE (LIBRIUM) 5 MG Capsule Take 1 Capsule by mouth 3 times a day as needed. Active Misc. Devices (AIRGO ROLLING WALKER) MISC One rolling walker 1 Each 0 06/20/20 16 Active Ibuprofen 200 MG Capsule Take 1 [...] Tab by mouth daily. 30 Tab 3 03/15/20 20 Active Levothyroxine Sodium 75 MCG Oral Tablet (LEVOXYL) daily. Reports she take 88mcg now 08/03/20 20 Active Promethazine HCl 12.5 MG Oral Tablet (PHENERGAN) Take 1 Tab by mouth every 8 hours as needed for Nausea. 30 Tab 3 10/21/20 20 Active Diclofenac Sodium 1 % External Gel Apply topically to affected area 4 times a day as needed for Pain (neuropathy). Apply to feet 4 times a day as needed. Active Gabapentin 300 MG Oral Capsule (Neurontin) 08/18/20 Active Furosemide 40 MG Oral Tablet (Lasix)Indicatio ns:Cirrhosis of liver (HCC) TAKE 1 TABLET BY MOUTH ONCE DAILY 90 Tablet 1 07/22/20 24 Active Spironolactone 50 MG Oral Tablet (Aldactone) Take 1 Tablet by mouth in the morning. 30 Tablet 2 11/12/20 24 Active Spironolactone 100 MG Oral Tablet (Aldactone) Take 1 Tab by mouth daily. 30 Tab 2 08/15/20 21 024 Discontinued documented as of this encounter (statuses as of 11/12/2024) Active Problems Problem Noted Date Diagnosed Date Hypothyroidism 06/16/2016 HTN, goal below 150/90 06/16/2016 DM type 2, goal: symptom mgmt 06/16/2016 HLD (hyperlipidemia) 06/16/2016 Gram-negative bacteremia 06/16/2016 Acute biliary pancreatitis 06/16/2016 Gallstone pancreatitis 06/16/2016 Ascending cholangitis 06/16/2016 DM type 2, goal: symptom mgmt 03/06/2016 HTN, goal: symptom mgmt only 03/06/2016 Thyroid disease 03/06/2016 documented as of this encounter (statuses as of 11/12/2024) Immunizations Name Administration Dates Next Due Season Influenza, Quad, PF, Adjuvanted, 65+ Yrs, IM (FLUAD) 08/07/2021 Seasonal Influenza, Trivalen t, Adjuvanted, 65+ YRS, PF, (Fluad) 08/03/2020 documented as of this encounter Social History Tobacco Use Types Packs/Day Years Used Date Smoking Tobacco: Former Cigarettes Smokeless Tobacco: Never Comments:Quit in 7 Alcohol Use Standard Drinks/Week Comments No 0 (1 standard drink = 0.6 oz pur e alcohol) Comments No Sex and Gender Information Value Date Recorded Sex Assigned at Not on file Legal Sex Female 7:13 AM EST Gender Identity Not on file Sexual Orientation Not on file documented as of this encounter Last Filed Vital Signs Vital Sign Reading Time Taken Comments Blood Pressure 158/68 11/12/2024 1:22 PM EST Pulse 75 11/12/2024 1:22 PM EST Temperature - - Respiratory Rate - - Oxygen Saturation - - Inhaled Oxygen Concentration - - Weight 71.2 kg (156 lb 14.4 oz) 11/12/2024 1:22 PM EST Height - - Body Mass Index 29.65 09/04/2023 12:14 PM EDT documented in this encounter Functional Status * Are you deaf or do you have serious difficulty hearing? Answer Date of Assessment Author No 06/16/2016 8:58 PM EDT Chrissy Tracy RN * Are you blind or do you have serious difficulty seeing, even when wearing glasses? Answer Date of Assessment Author No 06/16/2016 8:58 PM Chrissy oLbo RN * Do you have serious difficulty walking or climbing stairs? (5 years old or older) Answer Date of Assessment Author No 06/16/2016 8:58 PM Chrissy Lobo RN * Do you have difficulty dressing or bathing? (5 years old or older) Answer Date of Assessment Author No 06/16/2016 8:58 PM EDChrissy Garcia RN * Because of a physical, mental, or emotional condition, do you have difficulty doing errands alone such as visiting a doctors office or shopping? (15 years old or older) Answer Date of Assessment Author No 06/16/2016 8:58 PM Chrissy Lobo RN documented as of this encounter Mental Status * Because of a physical, mental, or emotional condition, do you have serious difficulty concentrating, remembering, or making decisions? (5 years old or older) Answer Entry Date Author No 06/16/2016 8:58 PM Chrissy Lobo RN documented in this encounter Progress Notes * Laurence Arvizu CRNP - 11/12/2024 1:06 PM EST DATE OF SERVICE: 11/12/24 REFERRING PHYSICIAN: Em Hamilton DO CC: F/U MCPHERSON cirrhosis HPI: 03/04/2017 - Tamela Lorenzo is a 81 year old female, here to f/u MCPHERSON cirrhosis care. She had hx of gallstone pancreatitis w cholangitis last May 2016. She is s/p ERCP w biliary stent placement and cholecystectomy. During her cholecystectomy, she was noted to have nodular appearing liver. No liver bxwas done. She has mildly elevated LFTs ALT>AST, also INR of around 1.1. She has hx of diabetes, told at one point she has fatty liver. She denies any ETOH, tobacco uses, had previously been checked for Hepatitis in when she worked for [employer]. She denies any hx of autoimmune disorders or family hx liver diseases. 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 Previously F4 score on Fibroscan. She is overall feeling well, denies any issues w jaundice, confusion, CP, SOB, abd pain, n/v. She does have leg swelling mostly at end of day. Tries to prop up legs w pillows when sitting or laying down. Denies any issues w abdominal swelling. 06/12/17: Pt is here for f/u MCPHERSON cirrhosis. Main complaint is ongoing leg edema but she said this doesn't bother her. She admits to eat mostly canned veggies, deli meat sandwiches since living alonenow after . She denies any jaundice, confusion, CP, SOB abd pain, n/v. Does haveIBS diarrhea symptoms at times but controlled w usually 1 Lomotil daily. Most recent labs including CBC, CMP, PT/INR, acute hepatitis serologies, HAV, HBV immunity checks done on 03/05/17 at [facility]. Shehas total Hep A and B Antibody. MELD 6. Noted low Na 132, Cl 97. She drinks about 32 oz of fluids (1L a day). 09/12/17: Pt here for f/u. She started Lasix 20mg daily, said it didn't help much w leg edema. Is trying to reduce high salt foods in diet but having a hard time. Still eating mostly sandwiches, canned veggies (rinsing them w water). Denies any issues w jaundice, CP, SOB, abd pain, n/v. BM 2-3x a day w Lomotil, stools formed. She mentioned having stress test done in the past 1-2 yrs ago which came back normal. 02/26/18: Pt here for f/u. Still having leg edema despite increase of Lasix to 40mg daily. Denies any major illness, hospitalization since last visit. Also denies any jaundice, CP, SOB. Bowel moving ok. No abd distension. 03/11/19: Pt here for f/u. She is doing quite well. Denies any hospitalization or major illness within last year. She does still have leg edema improved if she take her Lasix 40mg daily. She denies any juandice, confusion, CP, SOB, abd pain, n/v. Bowels move 1-2x a day. On Lomotil for suspected IBSprescribed by PCP. No diarrhea, rectal bleeding. 10/01/19: Pt brought outside labs to review (CMP). Noted Na 127. Per pt, her PCP is encouraging herto eat more salty foods. Said will have repeat labs in 1 month's time and if Na is low she was going to be started on Na tabs. She denies any abd pain, n/v. Leg still swollen but not worse than before. 03/15/20: After connecting to the patient via telephone, the patient was identified by name and date of . Patient was then informed that this was a telephone call only visit. The patient agreed to participate. Visit Disposition: Routine follow-up Total call duration was 15 minutes. Pt denies any falls since last Summer. She denies any fever, chills, CP, SOB, abd pain/distension, increased leg swelling. Bowels move once daily. Denies any dark tarry stools, rectal bleeding. 09/14/20: Pt does get sinus congestion JUDD and takes Tylenol + Ibuprofen (total together 4 tabs a day). Denies CP, SOB, abd pain. Some nausea, vomiting not relieved w Zofran. Bowels move daily w/o dark tarry stools or rectal bleeding. Legs remains swollen. 02/17/21: Pt reports nausea and vomiting better controlled w Promethazine which she takes 3-4x a week. She denies abd pain, changes in bowel habits, jaundice. Leg swelling stable. 08/15/21: Pt having leg swelling, recently L >R. States just saw PCP 1 week ago and previously had u/s of LLE to r/o clots. She denies fever, chills, abd pain, n/v, abd distension. Bowels move daily w/o signs of GI bleeding. Labs from [facility] 08/01/2021 reviewed 02/12/22: Pt was admitted with hyponatremia in August, was eating more salty foods. She is currently only on Furosemide 40mg daily, Spironolactone and Lisinopril stopped. She denies any CP, SOB, abdpain, n/v. Bowels move daily, leg swollen but she reports is better. 09/04/22: Patient received by variant COVID vaccine 3 weeks ago. Had site reaction including nauseahowever resolved within a days time. Denies any other major illnesses or hospitalizations since last seen. She would like me to examine a sore on her bottom. 03/05/23: Pt denies any abdominal pain, nausea or vomiting. Is complaining constipation this days. Not taking her Lomotil. Her leg swelling is better after going through physical therapy and using her compression stockings. 09/04/23 :Pt is doing well. Feels edema on lower legs are better. Only on Lasix 40mg daily. No longer having any issues w constipation. Takes famotidine only as needed for heartburn which usually works well for her. Denies any jaundice, abdominal pain, nausea or vomiting. 05/13/24: Pt noticed increased leg edema than usual. On Lasix 40 mg daily. She denies abd distension, abd pain, n/v. Stools aren't black or tarry, rectal bleeding. 11/12/24: In the last 2 months she has noticed increased bilateral leg swelling. Weight is down 8 lb since April. No increased abdominal swelling or distention. Denies any chest pain, shortness of breath, abdominal pain, nausea or vomiting. Is having trouble ambulating due knees being weak and having pain, in addition to the leg swelling. Past Medical History: Diagnosis Date Anxiety DM type 2, goal: symptom mgmt (HCC) HLD (hyperlipidemia) HTN (hypertension) Hypothyroid IBS (irritable bowel syndrome) Vertigo Family History Problem Relation Name Age of Onset Cancer Brother colon can Past Surgical History: Procedure Laterality Date EGD, FLEXIBLE, DIAGNOSTIC 09/13/2016 normal bx, repeat 1.5 yrs/ESOPHAGOGASTRODUODENOSCOPY (EGD), FLEXIBLE, TRANSORAL, DIAGNOSTIC performed by Uzma Mendez DO at [facility] EGD, FLEXIBLE, DIAGNOSTIC 06/11/2018 portal hypertensive gastropathy, repaet 1.5 yrs/ESOPHAGOGASTRODUODENOSCOPY (EGD), FLEXIBLE, TRANSORAL, DIAGNOSTIC performed by Uzma Mendez DO at ENDOSCOPY [facility] EGD, FLEXIBLE, DIAGNOSTIC 01/26/2020 bile gastritis, repeat 1.5 yrs/ESOPHAGOGASTRODUODENOSCOPY (EGD), FLEXIBLE, TRANSORAL, DIAGNOSTIC performed by Uzma Mendez DO at [facility] ERCP DUCT STENT PLACEMENT N/A 06/16/2016 ENDOSCOPIC RETROGRADE CHOLANGIOPANCREATOGRAPHY (ERCP) W/STENT PLACEMENT; INC DILATION, GUIDE WIRE AND SPHINCTEROTOMY performed by Partha Herrera MD [place] [facility] [place]CP, DIAGNOSTIC, SPECIMEN COLLECTION N/A 07/20/2016 ENDOSCOPIC RETROGRADE CHOLANGIOPANCREATOGRAPHY (ERCP) DIAGNOSTIC performed by Partha Herrera MD at [facility] INJECTION LUMBAR/SACRAL 04/04/2016 INJECTION SPINE LUMBAR OR SACRAL performed by Mario Connolly DO at [facility] INJECTION LUMBAR/SACRAL 04/18/2016 INJECTION SPINE LUMBAR OR SACRAL performed by Mario Connolly DO at OR [facility] INSERTION OF LENS PROSTHESIS Bilateral LAPAROSCOPY; CHOLECYSTECTOMY N/A 06/18/2016 LAPAROSCOPIC CHOLECYSTECTOMY performed by Chayito Simpson MD at [place] [facility] REMOVAL OF APPENDIX REMOVAL OF TONSILS, UNDER AGE 12 TOTAL ABD HYSTERECTOMY W/WO REMOVAL OF TUBE(S) Social History Tobacco Use Smoking status: Former Types: Cigarettes Smokeless tobacco: Never Tobacco comments: Quit in 1956 Vaping Use Vaping status: Never Used Substance Use Topics Alcohol use: No Drug use: No Review of patient's allergies indicates: No Known Allergies Current Outpatient Medications Medication Sig Dispense Refill lisinopril (PRINIVIL) 20 MG Tablet Take 1 Tablet by mouth in the morning. diphenoxylate-atropine 2.5-0.025 mg per tab (LOMOTIL) 2.5-0.025 MG Tablet Take 1 Tablet by mouth 4 times a day as needed for Diarrhea. pravastatin (PRAVACHOL) 40 MG Tablet Take 1 Tablet by mouth in the morning. meclizine (ANTIVERT) 12.5 MG Tablet Take 1 Tablet by mouth 3 times a day as needed. Multiple Vitamin (MULTIVITAMINS) Capsule Take 1 Capsule by mouth in the morning. [place]-3 Fatty Acids (FISH OIL) 1000 MG Capsule Take 1 Capsule by mouth in the morning. Ascorbic Acid (VITAMIN C) 500 MG CAPS Take 1,000 mg by mouth daily. Aspirin 81 MG Tablet Take 1 Tablet by mouth in the morning. guaiFENesin ER 600 MG Oral Tablet Extended Release 12 Hour Take 1 Tablet by mouth in the morning and 1 Tablet before bedtime. (Patient not taking: Reported on 05/13/2024) fexofenadine (BHAVIN) 60 MG Tablet Take 1 Tablet by mouth in the morning. Calcium Carbonate-Vitamin D (CALCIUM-VITAMIN D) 250-125 MG-UNIT TABS Take 1 Tab by mouth daily. 500mg off calcium and 400iu of vitamin d - twice a day fluticasone (FLONASE) 50 MCG/ACT nasal spray Administer 1 Orange into nostril in the morning. (Patient not taking: Reported on 05/13/2024) chlordiazePOXIDE (LIBRIUM) 5 MG Capsule Take 1 Capsule by mouth 3 times a day as needed. Misc. Devices (AIRGO ROLLING WALKER) MISC One rolling walker 1 Each 0 Ibuprofen 200 MG Capsule Take 1 Capsule by mouth every 4 hours as needed for Pain. Glucosamine HCl 1000 MG Tablet Take 1 Tablet by mouth in the morning and 1 Tablet before bedtime. AUG BETAMETHASONE DIPROPIONATE (DIPROLENE AF) 0.05 % cream Apply topically to affected area 2 timesa day. Apply to toe as needed (Patient not taking: Reported on 05/13/2024) Fluocinonide 0.05 % cream Apply topically to affected area 2 times a day. Apply to toes as needed Cranberry 300 MG TABS Take by mouth 2 times a day. Solifenacin Succinate 5 MG Oral Tablet Take 1 Tablet by mouth in the morning. famotidine (PEPCID) 20 MG Tablet Take 1 Tab by mouth daily. 30 Tab 3 Levothyroxine Sodium 75 MCG Oral Tablet (LEVOXYL) daily. Reports she take 88mcg now Promethazine HCl 12.5 MG Oral Tablet (PHENERGAN) Take 1 Tab by mouth every 8 hours as needed for Nausea. 30 Tab 3 Diclofenac Sodium 1 % External Gel Apply topically to affected area 4 times a day as needed for Pain (neuropathy). Apply to feet 4 times a day as needed. Spironolactone 100 MG Oral Tablet (Aldactone) Take 1 Tab by mouth daily. (Patient not taking: Reported on 02/12/2022) 30 Tab 2 Gabapentin 300 MG Oral Capsule (Neurontin) Furosemide 40 MG Oral Tablet (Lasix) TAKE 1 TABLET BY MOUTH ONCE DAILY 90 Tablet 1 No current facility-administered medications for this visit. REVIEW OF SYSTEMS: See HPI above; All other findings negative. EXAM: Filed Vitals: 11/12/24 1322 BP: 158/68 Pulse: 75 Weight: 71.2 kg (156 lb 14.4 oz) GENERAL: Well developed and well nourished in no acute distress. SKIN: No rashes, ulcers, jaundice or spider angiomata. HEENT: Normocephalic, sclera clear NECK: Supple,trachea midline, no JVD LUNGS: Clear to auscultation bilaterally, no respiratory distress or accessory muscles used. HEART: Regular rate & rhythm, no murmurs and no gallops. ABDOMEN: Normal bowel sounds, soft and nontender. EXTREMITIES: No palmar erythema, + 2 pitting edema bilateral LE, no clubbing, no cyanosis. NEURO: No lateralizing findings. Sensory/Motor grossly normal. 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 MELD 11. Is having increased swelling on bilateral LE - MELD labs q6 months (reviewed at [facility] system) - CMP today then 1 week later. Furosemide 40mg daily, add Spironolactone 50mg daily - EGD for varices screening 01/26/2020; she would like to defer repeat - Last colonoscopy per pt's report was in 1960s. She wants to defer any repeat colonoscopy. - HCC screening ([id number]).: she would like to defer repeat HCC screening with [facility] - Has Hep A and B immunities - Recommended autoimmune and hereditary liver disease labs but pt states she's limited on budget and prefer no extra testing at this time - Encouraged to abstain from ETOH, illicit drugs, APAP no more than 2g daily. Again advised no morethan 2g Na in diet a day; avoid frozen foods, canned veggies, deli meats. - Miralax 1 dose daily +/- Metamucil 2 tsp daily prn constipation I spent a total of 30 minutes on the date of service in review of patient's record, and previously obtained information in person and appropriate medical visit, discussion and education of plan, withpatient and/or caregiver, placing orders for tests/referral/procedures as medically necessary and documentation of pertinent clinical information in patient's medical records for their visit today. RETURN TO CLINIC: 3 months; or sooner prn Linnea Escalante Gastroenterology, [facility] documented in this encounter Nursing Notes * Kay Mccormick LPN - 11/12/2024 1:21 PM EST Chief Complaint Patient presents with Follow Up Pt reports that she has (B) LLE swelling documented in this encounter Plan of Treatment Upcoming Encounters Date Type Department Care Team (Late st Contact Info) Description 03/03/2025 1:00 PM EDT Office Visit Gastroenterology, [facility] [address] [place] [id number] Laurence Arvizu CRNP [address] [place] [place] [address] Pending Results Name Type Priority Associated Diagnoses Date /Time COMPREHENSIVE METABOLIC PANEL Lab Routine Generalized edema Cirrhosis of liver without ascites, unspecified hepatic cirrhosis type (HCC) 11/12/2024 2:12 PM EST PT INR Lab Routine Cirrhosis of liver without ascites, unspecified hepatic cirrhosis type (HCC) 11/12/2024 2:12 PM EST ALPHA-FETOPROTEIN TUMOR MARKER Lab Routine Cirrhosis of liver without ascites, unspecified hepatic cirrhosis type (HCC) 11/12/2024 2:12 PM EST Scheduled Orders Name Type Priority Associated Diagnoses Orde r Schedule COMPREHENSIVE METABOLIC PANEL Lab Routine Generalized edema Cirrhosis of liver without ascites, unspecified hepatic cirrhosis type (HCC) Expected: 11/12/2024, Expires: 11/12/2025 PT INR Lab Routine Cirrhosis of liver without ascites, unspecified hepatic cirrhosis type (HCC) Expected: 11/12/2024, Expires: 11/12/2025 ALPHA-FETOPROTEIN TUMOR MARKER Lab Routine Cirrhosis of liver without ascites, unspecified hepatic cirrhosis type (HCC) Expected: 11/12/2024, Expires: 11/12/2025 Scheduled Procedures Name Priority Associated Diagnoses Date/Ti [...] as of this encounter Visit Diagnoses Diagnosis Generalized edema- Primary Edema Cirrhosis of liver without ascites, unspecified hepatic cirrhosis type (HCC) documented in this encounter Advance Directives Documents on File Type Date Recorded Patient Director [employer] Expl anation Advance Directives and Livin g [...] Power of Attor chel? No Care Teams Coal Feeder Operator Relationship Specialty Start Date End Date Dakota Lopez CRNP PCP - General Nurse Practitioner 06/12/17 documented as of this encounter
--- OUTSIDE RECORDS SUMMARY | 2024-11-19 19:44 | External Medical Summary ---
Author Name Unknown Address Unknown Organization [facility] [address] [place] [id number] Laboratory Report Ordering Provider Test Date Status AUGUSTO PARKER 11/12/2024 14:12:16 Final Observation Date Value Abnormality Reference (Units ) Status BUN 11/12/2024 14:12:16 9 6-20 (mg/dL) Final Creatinine 11/12/2024 14:12:16 0.6 0.5-1.0 (mg/dL) Final Glomerular filtration rate/1.73 sq M.predicted [Volume Rate/Area] in Serum, Plasma or Blood by Creatinine-based formula (CKD-EPI) 11/12/2024 14:12:16 86 >=60 (mL/min) Final eGFR is calculated based on the CKD-EPI 2020 equation. Sodium 11/12/2024 14:12:16 137 135-146 (m mol/L) Final Potassium 11/12/2024 14:12:16 3.7 3.5-5.1 (m mol/L) Final Cl 11/12/2024 14:12:16 98 98-107 (mm ol/L) Final CO2 11/12/2024 14:12:16 23 22-32 (mmo l/L) Final Anion gap 11/12/2024 14:12:16 16 Above high normal 7- 15 (mmol/L) Final Glucose 11/12/2024 14:12:16 120 70-120 (mg /dL) Final Albumin 11/12/2024 14:12:16 4.3 3.8-5.0 (g /dL) Final AST (Aspartate aminotransferase) 11/12/2024 14:12:16 28 10-35 (U/L) Fin al Alk Phos 11/12/2024 14:12:16 105 35-130 (U/ L) Final Bilirubin, Total 11/12/2024 14:12:16 0.7 <=1 .2 (mg/dL) Final Calcium 11/12/2024 14:12:16 9.8 8.4-10.2 ( mg/dL) Final Protein 11/12/2024 14:12:16 6.8 6.0-8.3 (g /dL) Final ALT (Alanine aminotransferase) 11/12/2024 14:12:16 22 10-35 (U/L) Ck bone Performing Location [facility] [place] [address]
--- OUTSIDE RECORDS SUMMARY | 2024-11-19 19:44 | External Medical Summary ---
Author Name Unknown Address Unknown Organization [facility] [address] [place] [id number] Laboratory Report Ordering Provider Test Date Status AUGUSTO PARKER 11/12/2024 14:12:16 Final Warfarin Therapy
INR: 2 .0-3.0 conventional anticoagulation
INR: 2.5- 3.5 high intensity anticoagulation Observation Date Value Abnormality Reference (Units ) Status PT 11/12/2024 14:12:16 14.4 11.6-15.2 (seconds) Final INR 11/12/2024 14:12:16 1.1 0.8-1.2 Final Performing Location [facility] [address] [place] [address]
--- OUTSIDE RECORDS SUMMARY | 2024-11-19 19:44 | External Medical Summary | Summary of Care ---
Author Name Unknown Organization [facility] [address] [address] Phone [phone] Care Team Providers Care Veneer Glue Jointer Feedback Name Role Phone YaronDakota moore Lyla FERRARI Primary Care Provider [phone] Reason for Visit * Reason Comments Outpatient Testing Encounter Details Date Type Department Care Team (Late st Contact Info) Description 11/12/2024 2:00 PM EST Laboratory Laboratory, [facility] [address] [facility] [id number] [facility] [address] [place] [address] Generalized edema; Cirrhosis of liver without ascites, unspecified hepatic [...] Capsule by mouth in the morning. Active [place]-3 Fatty Acids (FISH OIL) 1000 MG Capsule [...] (FLONASE) 50 MCG/ACT nasal spray Administer 1 [place] into nostril in the morning. Active chlordiazePOXIDE [...] 03/03/2025 1:00 PM EDT Office Visit Gastroenterology, [facility] [address] [place] [address] Laurence Arvizu CRNP [address] [place] [phone] Pending Results Name Type Priority Associated Diagnoses [...] type (HCC) 11/12/2024 2:12 PM EST Scheduled Procedures Name Priority Associated Diagnoses Date/Ti [...] of this encounter Visit Diagnoses Diagnosis Generalized edema Edema Cirrhosis of liver without ascites, unspecified hepatic cirrhosis type (HCC) documented in this encounter Advance Directives Documents on File Type Date Recorded Patient Life Skills Educator Expl anation Advance Directives and Hannah olivarez Will 02/12/2005 ADVANCE DIRECTIVE * Full Code [...] Power of Attor chel? No Care Teams Veneer Glue Jointer Feedback Relationship Specialty Start Date End Date Dakota Lopez CRNP PCP - General Nurse Practitioner 06/12/17 documented as of this encounter
--- OUTSIDE RECORDS SUMMARY | 2024-11-19 19:44 | External Medical Summary | Summary of Care ---
Author Name Unknown Organization [facility] Address [address] [facility] [address] Phone [phone] Care Team Providers Care Inorganic Chemist Name Role Phone YaronoscarCalebDakota Lyla FERRARI Primary Care Provider Reason for Visit * Reason Onset Date Comments Test Results 11/13/2024 Encounter Details Date Type Department Care Team (Late st Contact Info) Description 11/13/2024 Telephone Gastroenterology, [facility] [address] [place] [phone] Laurence Arvizu CRNP [address] [place] [id number] Test Results Allergies Active Allergy Reactions Criticality Noted Date [...] Capsule by mouth in the morning. Active [place]-3 Fatty Acids (FISH OIL) 1000 MG Capsule [...] (FLONASE) 50 MCG/ACT nasal spray Administer 1 [place] into nostril in the morning. Active chlordiazePOXIDE [...] of Assessment Author No 06/16/2016 8:58 PM Crhissy Lobo RN * Are you blind or do you have serious difficulty seeing, even when wearing glasses? Answer Date of Assessment Author No 06/16/2016 8:58 PM Chrissy Lobo RN * Do you have serious difficulty walking or climbing stairs? (5 years old or older) Answer Date of Assessment Author No 06/16/2016 8:58 PM EDChrissy Garcia RN * Do you have difficulty dressing [...] Chrissy Lobo RN documented in this encounter Miscellaneous Notes * Telephone Encounter - Juliane Goldman RN - 11/13/2024 2:50 PM EST Pt notified. * Telephone Encounter - Frances Vega RN - 11/13/2024 11:59 AM EST ----- Message from Laurence Arvizu sent at 11/13/2024 11:19 AM EST ----- Left voicemail on pt's phone. Pls inform her when she calls back that her labs are all unremarkable(CMP, alpha fetoprotein tumor maker, pt/inr). Remind her to start Spironolactone 50mg daily in addition to Furosemide 40mg daily. 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 No Care Teams Inorganic Chemist Relationship Specialty Start Date End Date Dakota Lopez CRNP PCP - General Nurse Practitioner 06/12/17 documented as of this encounter
[2024-11-19 20:34] LABS: Albumin Globulin Ratio 1.3 (0.9-2); Albumin Level 4.3 gm/dl (3.4-5.0); BUN Creatinine Ratio 21.2 (10-20); Bilirubin,Total 0.8 mg/dl (0.2-1.0); Calcium 10.3 mg/dl (8.6-10.3); Creatinine Clr Calc Pharmacy 46.8 ml/min; Globulin 3.2 gm/dl (2.5-4.0); Magnesium 1.6 mg/dl (1.7-2.4); Potassium 3.2 mmol/L (3.5-5.1); Total Protein 7.5 gm/dl (6.0-8.3)
[2024-11-19 20:47] LABS: Troponin I High Sensitivity 140.6 pg/ml (0-14)
[2024-11-19 20:49] LABS: Thyroid Stimulating Hormone 5.311 uIu/ml (0.300-4.500)
[2024-11-19 21:02] LABS: Adenovirus PCR Not Detected (NotDetected); Bordetella parapertussis PCR Not Detected (NotDetected); Bordetella pertussis PCR Not Detected (NotDetected); Chlamydia pneumoniae PCR Not Detected (NotDetected); Coronavirus 229E PCR Not Detected (NotDetected); Coronavirus CoV-2 (COVID19)PCR Not Detected (NotDetected); Coronavirus HKU1 PCR Not Detected (NotDetected); Coronavirus NL63 PCR Not Detected (NotDetected); Coronavirus OC43PCR Not Detected (NotDetected); Human Metapneumovirus PCR Not Detected (NotDetected); Influenza A PCR Not Detected (NotDetected); Influenza B PCR Not Detected (NotDetected); Mycoplasma pneumoniae PCR Not Detected (NotDetected); Parainfluenza Virus 1 PCR Not Detected (NotDetected); Parainfluenza Virus 2 PCR Not Detected (NotDetected); Parainfluenza Virus 3 PCR Not Detected (NotDetected); Parainfluenza Virus 4 PCR Not Detected (NotDetected); Respiratory Syncytial VirusPCR Not Detected (NotDetected); Rhinovirus/Enterovirus PCR Not Detected (NotDetected)
[2024-11-19 21:25] LABS: T4 Free Thyroxine 1.05 ng/dl (0.61-1.60)
--- NOTE | 2024-11-19 21:27 | XRay Report ---
Exam(s): XR CXR 1 VIEW EXAM: XR Chest, 1 View CLINICAL HISTORY: Reason for exam: weakness. TECHNIQUE: Frontal view of the chest. COMPARISON: 08/30/21 FINDINGS: Lungs: Unremarkable. No consolidation. Pleural space: Unremarkable. No pleural effusion or pneumothorax. Heart: Stable cardiac silhouette. Bones/joints: No acute fracture. No dislocation. Vasculature: Thoracic aortic atherosclerosis. IMPRESSION: No acute findings in the chest. Electronically signed by: Gigi Elmore M.D. 11/19/24 21:26 PM
--- NOTE | 2024-11-19 21:41 | History & Physical Report ---
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 Concern that patient may require rehab stay at time of discharge -UA on admission appears dirty (+LE, WBC, trace blood, no nitrites). Will await culture before treating with antibiotics as patient is currently asymptomatic Elevated Troponin -Initial troponin 140.6 -> 484.7 -> 776.8 -Patient denies chest pain. Suspect secondary to demand ischemia with fall today, but will trend troponin to peak -Will order echocardiogram -EKG obtained in ED, no acute ST changes on my interpretation. -Monitor on telemetry, repeat EKG if any chest pain Hypokalemia | Hypomagnesemia -K 3.2, mag 1.6 on admission. Repletion ordered -Repeat BMP, mag in a.m. Bilateral Lower Extremity Edema -Documented history of lymphedema per prior PCP notes -Increased swelling and erythema of bilateral lower legs, patient reports minimal improvement with addition of spironolactone -After chart review, unsure which provider/office is prescribing the furosemide and spironolactone- appears to be outside of [facility] -Will order Warren hose, encourage elevation of legs. Suspect worsening venous stasis -BNP within normal limits in ED, lower suspicion this is related to CHF. Echo in 2020 with EF 60-65% Admit to: Med/tele VTE Prophylaxis: Heparin Diet: Heart healthy Code Status: DNR/DNI History of Present Illness Primary Care Provider: Dakota Lopez, III, OPERATIONS SPECIALIST Tamela Lorenzo is a 89 year-old female with a medical history significant for HTN, HLD, hypothyroidism, IBS, prior pressure ulcers. HPI is provided by patient and her son, Matias who is at bedside. 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 On 11/19, patient was using her rollator walker at home when she felt that her legs "just gave out" and she lowered herself onto the floor landing on her rear end. This prompted her trip to the ED for evaluation. Last week she received another round of "gel injections" in her knees to try to help with the pain. Also was started on spironolactone last week for worsening lower leg swelling. Patient states that she is scheduled to start home PT next week, but is concerned that it was too late for the weakness she is experiencing. States she lives in a senior apartment building but recently had to hire someone to come and clean/sweep/do the laundry which she has not previously needed. Patient states she has called [facility] and was told she is "on a waiting list" to be considered. Patient denies any chest pain, shortness of breath, changes in bowel or bladder function. ED Course: -CBC, CMP, BNP, TSH, troponin -EKG -Chest XR Allergies Allergy/AdvReac Type Severity Reaction Status Date / Time lactose AdvReac Unknown Unknown Verified 09/08/24 10:11 Home Medications Medication Instructions Recorded Confirmed Type calcium 600 mg (as carbonate)-vit 1 tab PO BID 08/18/19 09/08/24 History D3 10 mcg (400 unit)-minerals tablet glucosamine sulfate 1,000 mg 1,000 mg PO BID 08/18/19 09/08/24 History capsule multivitamin with iron (Daily 1 tab PO DAILY 08/18/19 09/08/24 History Multiple Vitamins with Iron tablet) omega-3 fatty acids-fish oil 360 1 cap PO DAILY 08/18/19 09/08/24 History mg-1,200 mg capsule (Fish Oil) meclizine 12.5 mg tablet 12.5 mg PO TID PRN dizziness #60 09/15/19 09/08/24 Rx tabs fexofenadine 60 mg tablet (Allergy 60 mg PO DAILY 08/08/20 09/08/24 History Relief (fexofenadine)) diclofenac sodium 1 % topical gel 4 g topical QID PRN Joint Pain 02/06/21 09/08/24 Rx (Voltaren) #100 grams ascorbate calcium (vitamin C) 500 500 mg PO BID 06/22/21 09/08/24 History mg tablet acetaminophen 500 mg tablet 500 mg PO Q6H PRN Pain 08/30/21 09/08/24 History (Tylenol Extra Strength) famotidine 20 mg tablet 20 mg PO DAILY PRN gastric upset 08/30/21 09/08/24 History blood sugar diagnostic #300 ea 10/31/21 09/08/24 Rx ibuprofen 200 mg capsule 200 mg PO BID 08/09/22 09/08/24 History blood-glucose meter (OneTouch #1 ea 01/28/23 09/08/24 Rx Ultra2 Meter) lancets 33 gauge (OneTouch Delica #100 ea 02/13/23 09/08/24 Rx Lancets) cranberry extract 650 mg capsule 1,300 mg PO BID 03/04/23 09/08/24 History blood sugar diagnostic (OneTouch #100 ea 12/25/23 09/08/24 Rx Ultra Test strips) miscellaneous medical supply 1 ea miscellaneous .COMPLEX #1 ea 03/19/24 09/08/24 Rx furosemide 40 mg tablet mg PO DAILY 05/05/24 09/08/24 History gabapentin 300 mg capsule See Rx Instructions .Route 06/04/24 09/08/24 Rx .COMPLEX #90 caps pravastatin 40 mg tablet See Rx Instructions .Route 07/22/24 09/08/24 Rx .COMPLEX #90 tabs diphenoxylate-atropine 2.5 1 tab PO TID PRN diarrhea #90 tabs 07/28/24 09/08/24 Rx mg-0.025 mg tablet promethazine 12.5 mg tablet See Rx Instructions .Route 08/13/24 09/08/24 Rx .COMPLEX #90 tabs chlordiazepoxide HCl 5 mg capsule 5 mg PO TID PRN anxiety #90 caps 10/05/24 Rx solifenacin 5 mg tablet (Vesicare) 5 mg PO DAILY #90 tabs 10/09/24 Rx levothyroxine 88 mcg tablet 88 mcg PO DAILY #90 tabs 10/21/24 Rx (Synthroid) Past Med/Surg History Problem List Hypokalemia (Acute) Weakness (Acute) Ambulatory dysfunction (Acute) Elevated troponin (Acute) Ambulatory dysfunction Skin lesion (Acute) Hyponatremia (Chronic) Pressure ulcer of buttock H/O basal cell carcinoma excision Anxiety disorder Lymphedema Urinary incontinence Perineal discomfort in female Diabetes mellitus Diabetic neuropathy Hypercholesterolemia Hypertension Irritable bowel syndrome Microalbuminuria Midline cystocele shaatz 3 1/2" pessary replaced on 10/03/23 Rectocele Hypothyroidism Medical History Former smoker History of basal cell carcinoma Fatty (change of) liver, not elsewhere classified H/O gastroesophageal reflux (GERD) Skin cancer Pancreatitis 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 Surgical History History of bunionectomy S/P appendectomy S/P cholecystectomy S/P ERCP S/P hysterectomy H/O Mohs micrographic surgery for skin cancer face S/P tonsillectomy Family History Father Prostate cancer Diabetes Sister Myocardial infarction Mother Diabetes Stroke Family/Other Diabetes Colorectal cancer Denies family history of Ovarian cancer Breast cancer Social History Smoking Status: Former smoker Tobacco Type: Cigarettes Age Started Using Tobacco: 18; Age Quit Using Tobacco: 22; packs per day: 0.5; Cigarettes Per Day: 1 ppwk; Second Hand Exposure: No; Do You Dip or Chew Tobacco: No; Hx Alcohol Use: No Hx Substance Use: No Preferred Language: Tajik Communication Ability: Effective Visual Impairment: No Limitations Hearing Ability: Use of Hearing Aid Locomotive Inspector Required: No Beliefs That Will Affect Care: Yazidism Yazidism Beliefs: Samaritan marital status: / Current Living Situation: Alone Current Living Situation Comment: independent living facility current occupational status: retired How many Children do You have: 2 Feels Safe at Home: Yes Safety Concerns: Feels Safe At This Time Childhood Exposure to Second-Hand Smoke: No Diet: regular Diet Comment: Foods that don't trigger her IBS caffeine: Yes during the past year weight has: remained stable Dental Care, Regularly: No Physical Activity Frequency: Does not Exercise Seatbelt Use: always Sunscreen Use: No Assistive Devices: Glasses, Hearing Aid - Bilateral and Walker Review of Systems 2 Review of Systems: As per above Physical Exam 2 Constitutional: WD/WN, vitals as above Eyes: + anicteric sclerae; no conjunctival abn ormality ENMT: Ears: no external ear abnormality Nose: no external nose abnormality Moist mucous membranes Respiratory: normal respiratory effort, lungs clear to auscultation Cardiovascular: Rate/Rhythm: regular rate and regular rhythm Extremities: + edema Gastrointestinal (Abdomen): Moves limbs independently in bed Skin: bilateral lower extremities with erythema, +2 pitting edema Neurologic: No focal deficits appreciated Psychiatric: A+Ox3, euthymic affect Results & Data Results & Data Vital Signs (Past 12 Hours) Vital Signs Temp Pulse Pulse Resp BP Pulse Ox O2 Del Method 11/19/24 20:13 93 Room Air 11/19/24 19:54 82 11/19/24 19:48 96 H 20 94 Room Air 11/19/24 19:48 36.7 C 92 H 20 147/78 H 94 Room Air Laboratory Results 11/20/24 03:38 11/20/24 03:38 Diagnostic Findings Chest X-Ray 11/19/24 19:52 Exam(s): XR CXR 1 VIEW EXAM: XR Chest, 1 View CLINICAL HISTORY: Reason for exam: weakness. TECHNIQUE: Frontal view of the chest. COMPARISON: 08/30/21 FINDINGS: Lungs: Unremarkable. No consolidation. Pleural space: Unremarkable. No pleural effusion or pneumothorax. Heart: Stable cardiac silhouette. Bones/joints: No acute fracture. No dislocation. Vasculature: Thoracic aortic atherosclerosis. IMPRESSION: No acute findings in the chest. Electronically signed by: Gigi Elmore M.D. 11/19/24 21:26 PM Supervising Physician Co-Signing Physician Notes Patient seen and examined, chart reviewed, case discussed with Dr. Harris and I agree with the assessment and plan as above. In brief, patient is an 89yo female presenting with generalized weakness, ambulatory dysfunction. Elevated troponin, continues to rise. Patient with no chest pain or SOB. On exam she is afebrile, HD stable Skin - no rash HEENT- MMM, Neck supple Heart - +S1/S2, regular Lungs - CTA Abd - soft, NT/ND Ext - warm, well perfused 2+ pitting edema of bilateral LE Labs and images reviewed. Assessment/Plan -PT/OT evaluation for deconditioning -Continue to trend troponin -Check 2D echo -Electrolyte repletion -Remainder as above Resident Activity Tracking Resident Involvement: Resident Care Provided Care Provided: Adult Hospital Medicine (2) Hypothyroidism Hypothyroidism type: acquired Qualified Code(s): E03.9 - Hypothyroidism, unspecified
--- NOTE | 2024-11-19 21:50 | Emergency Department Note ---
Impression & Plan Elevated troponin, Ambulatory dysfunction, Weakness, Hypokalemia ED Provider Note NAME: TI CHEN AGE: 89 SEX: F : 1935 ARRIVES VIA: Ambulance INFORMANT: Patient, ED PROVIDER(S): Minoo Ruvalcaba MD CHIEF COMPLAINT: Fall, weakness HPI: This is an 89-year-old female presenting for fall/weakness. Patient notes that she has a generalized weakness that is increasing over the past few weeks/months. She will start on spironolactone. She notes that today she was attempting to walk and transition. She then just slid down her roller as her legs were so weak she could not keep her legs up. She notes leg swelling otherwise. She reports no nausea, vomiting, fevers or chills. She does report the legs are nonpainful to palpation or at rest. They are both bilaterally swollen and have not significantly changed. She did have her PCP evaluate this previously. No shortness of breath or chest pain. No pleurisy. ROS: See above HPI for pertinent positives & negatives. A total of 10 systems reviewed and were otherwise negative. PAST MEDICAL HISTORY: See Below PAST SURGICAL HISTORY: See Below FAMILY HISTORY: See Below SOCIAL HISTORY: See Below HOME MEDICATIONS: See Below ALLERGIES: See Below VITALS: See Below PHYSICAL EXAMINATION: General: resting comfortably in no acute distress Head: Normocephalic and atraumatic Eyes: Normal inspection, extraocular muscles intact Ear, nose, throat: Normal external exam Neck: Normal range of motion Respiratory: lungs clear to auscultation bilaterally Cardiovascular: Regular rate/rhythm, no murmur GI: soft, nontender, no guarding or rebound Extremities: 2+ pitting edema with erythema that is nontender bilaterally Neuro: The patient awake and alert, appropriately conversive, no focal deficits, symmetric faces Skin: Warm, dry, and intact MEDICAL DECISION MAKING: This is an 89-year-old female presenting for fall/weakness. Patient declines any chest pain, shortness of breath. She does report a chronic increased generalized weakness. -Electrolytes do reveal slightly low potassium. Low magnesium as well. -ECG independently interpreted by me with normal sinus rhythm, rate of 79, normal axis, normal NC, normal QRS, normal QTc, no ST segment elevations consistent with STEMI criteria -Patient bloodwork is reviewed showing slight hyponatremia 3.2, magnesium 1.6. -Otherwise troponin is elevated at 140. Patient does deny any current chest pain, shortness of breath, consistent with ACS or PE especially with EKG as above -Due to patient's weakness, inability to currently walk and elevated troponin, will admit to hospital service. Discussed care with Dr. Barraza Differential diagnosis: ACS, PE, muscle weakness, deconditioning, dehydration Diagnostics interpreted by me: ECG: See above Cardiac Monitoring: An order was placed for continuous cardiac monitoring. The monitor shows a rate of 87 with sinus rhythm. Past Med/Surg History Problem List (Updated 11/20/24 @ 00:54 by Minoo Ruvalcaba MD) Hypokalemia (Acute) Weakness (Acute) Ambulatory dysfunction (Acute) Elevated troponin (Acute) Ambulatory dysfunction Skin lesion (Acute) Hyponatremia (Chronic) Pressure ulcer of buttock H/O basal cell carcinoma excision Anxiety disorder Lymphedema Urinary incontinence Perineal discomfort in female Diabetes mellitus Diabetic neuropathy Hypercholesterolemia Hypertension Irritable bowel syndrome Microalbuminuria Midline cystocele shaatz 3 1/2" pessary replaced on 10/03/23 Rectocele Hypothyroidism Medical History Former smoker History of basal cell carcinoma Fatty (change of) liver, not elsewhere classified H/O gastroesophageal reflux (GERD) Skin cancer Pancreatitis 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 Surgical History History of bunionectomy S/P appendectomy S/P cholecystectomy S/P ERCP S/P hysterectomy H/O Mohs micrographic surgery for skin cancer S/P tonsillectomy Family History Father Prostate cancer Diabetes Sister Myocardial infarction Mother Diabetes Stroke Family/Other Diabetes Colorectal cancer Denies family history of Ovarian cancer Breast cancer Social History Smoking Status: Never smoker Tobacco Type: Cigarettes Age Started Using Tobacco: 18; Age Quit Using Tobacco: 22; packs per day: 0.5; Cigarettes Per Day: 1 ppwk; Second Hand Exposure: No; Do You Dip or Chew Tobacco: No; Hx Alcohol Use: No Hx Substance Use: No Preferred Language: Slovenian Communication Ability: Effective Visual Impairment: No Limitations Hearing Ability: Use of Hearing Aid Press Tender Short Goods Required: No Beliefs That Will Affect Care: None marital status: / Current Living Situation: Alone current occupational status: retired How many Children do You have: 2 Feels Safe at Home: Yes Childhood Exposure to Second-Hand Smoke: No Diet: regular Diet Comment: Foods that don't trigger her IBS caffeine: Yes during the past year weight has: remained stable Dental Care, Regularly: No Physical Activity Frequency: Does not Exercise Seatbelt Use: always Sunscreen Use: No Assistive Devices: Denture - Upper, Denture - Lower, Glasses, Hearing Aid - Bilateral and Walker Allergies Allergies Allergy/AdvReac Type Severity Reaction Status Date / Time lactose AdvReac Unknown Unknown Verified 09/08/24 10:11 Home Meds Home Medications Medication Instructions Recorded Confirmed calcium 600 mg (as carbonate)-vit 1 tab PO BID 08/18/19 09/08/24 D3 10 mcg (400 unit)-minerals tablet glucosamine sulfate 1,000 mg 1,000 mg PO BID 08/18/19 09/08/24 capsule multivitamin with iron (Daily 1 tab PO DAILY 08/18/19 09/08/24 Multiple Vitamins with Iron tablet) omega-3 fatty acids-fish oil 360 1 cap PO DAILY 08/18/19 09/08/24 mg-1,200 mg capsule (Fish Oil) fexofenadine 60 mg tablet (Allergy 60 mg PO DAILY 08/08/20 09/08/24 Relief (fexofenadine)) ascorbate calcium (vitamin C) 500 500 mg PO BID 06/22/21 09/08/24 mg tablet acetaminophen 500 mg tablet 500 mg PO Q6H PRN Pain 08/30/21 09/08/24 (Tylenol Extra Strength) famotidine 20 mg tablet 20 mg PO DAILY PRN gastric upset 08/30/21 09/08/24 ibuprofen 200 mg capsule 200 mg PO BID 08/09/22 09/08/24 cranberry extract 650 mg capsule 1,300 mg PO BID 03/04/23 09/08/24 furosemide 40 mg tablet mg PO DAILY 05/05/24 09/08/24 Previous Rx's Medication Instructions Recorded meclizine 12.5 mg tablet 12.5 mg PO TID PRN dizziness #60 09/15/19 tabs diclofenac sodium 1 % topical gel 4 g topical QID PRN Joint Pain 02/06/21 (Voltaren) #100 grams blood sugar diagnostic #300 ea 10/31/21 blood-glucose meter (OneTouch #1 ea 01/28/23 Ultra2 Meter) lancets 33 gauge (OneTouch Delica #100 ea 02/13/23 Lancets) blood sugar diagnostic (OneTouch #100 ea 12/25/23 Ultra Test strips) miscellaneous medical supply 1 ea miscellaneous .COMPLEX #1 ea 03/19/24 gabapentin 300 mg capsule See Rx Instructions .Route 06/04/24 .COMPLEX #90 caps pravastatin 40 mg tablet See Rx Instructions .Route 07/22/24 .COMPLEX #90 tabs diphenoxylate-atropine 2.5 1 tab PO TID PRN diarrhea #90 tabs 07/28/24 mg-0.025 mg tablet promethazine 12.5 mg tablet See Rx Instructions .Route 08/13/24 .COMPLEX #90 tabs chlordiazepoxide HCl 5 mg capsule 5 mg PO TID PRN anxiety #90 caps 10/05/24 solifenacin 5 mg tablet (Vesicare) 5 mg PO DAILY #90 tabs 10/09/24 levothyroxine 88 mcg tablet 88 mcg PO DAILY #90 tabs 10/21/24 (Synthroid) Results & Data (ED) Vital Signs Vital Signs - 24 hr 11/19/24 19:48 11/19/24 19:48 11/19/24 19:54 Temperature 36.7 C Temperature Source Oral Pulse Rate 92 H 82 Pulse Rate [Apical] 96 H Pulse Rhythm Regular Pulse Rhythm [Apical] Regular Pulse Strength Normal Respiratory Rate 20 20 Respiratory Effort / Characteristics Non-Labored Spontaneous Respiratory Depth Normal Normal Respiratory Pattern Regular Blood Pressure 147/78 H Blood Pressure [Right Arm] Blood Pressure Mean 101 Blood Pressure Mean [Right Arm] Blood Pressure Position Lying Pulse Oximetry 94 94 Oxygen Delivery Method Room Air Room Air Sepsis Recent Fever Within 48 Hours No Sepsis New/Unexplained Change in Mental Status N/A Sepsis Action Taken by Nursing No Action Required 11/19/24 20:13 11/19/24 22:00 Temperature Temperature Source Pulse Rate Pulse Rate [Apical] 82 Pulse Rhythm Pulse Rhythm [Apical] Pulse Strength Respiratory Rate 18 Respiratory Effort / Characteristics Non-Labored Spontaneous Respiratory Depth Normal Respiratory Pattern Regular Blood Pressure Blood Pressure [Right Arm] 145/53 H Blood Pressure Mean Blood Pressure Mean [Right Arm] 83 Blood Pressure Position Pulse Oximetry 93 97 Oxygen Delivery Method Room Air Room Air Sepsis Recent Fever Within 48 Hours Sepsis New/Unexplained Change in Mental Status Sepsis Action Taken by Nursing Laboratory Data 11/19/24 22:25 11/19/24 20:01 Lab Results 11/19/24 11/19/24 Range/Units 20:01 21:26 WBC Cancelled Cancelled RBC Cancelled Cancelled Hgb Cancelled Cancelled Hct Cancelled Cancelled MCV Cancelled Cancelled MCH Cancelled Cancelled MCHC Cancelled Cancelled RDW Std Deviation Cancelled Cancelled RDW Coeff of Timothy Cancelled Cancelled Plt Count Cancelled Cancelled MPV Cancelled Cancelled Immature Gran % (Auto) Cancelled Cancelled Neut % (Auto) Cancelled Cancelled Lymph % (Auto) Cancelled Cancelled [place] % (Auto) Cancelled Cancelled Eos % (Auto) Cancelled Cancelled Baso % (Auto) Cancelled Cancelled Neut # (Auto) Cancelled Cancelled Lymph # (Auto) Cancelled Cancelled [place] # (Auto) Cancelled Cancelled Eos # (Auto) Cancelled Cancelled Baso # (Auto) Cancelled Cancelled Immature Gran # (Auto) Cancelled Cancelled Absolute Nucleated RBC Cancelled Cancelled Nucleated RBC % (auto) Cancelled Cancelled Neutrophils % (Manual) Cancelled Cancelled Band Neutrophils % Cancelled Cancelled Lymphocytes % (Manual) Cancelled Cancelled Prolymphocyte % Cancelled Cancelled Reactive Lymphs % (Man) Cancelled Cancelled Monocytes % (Manual) Cancelled Cancelled Eosinophils % (Manual) Cancelled Cancelled Basophils % (Manual) Cancelled Cancelled Metamyelocytes % (Man) Cancelled Cancelled Myelocytes % (Man) Cancelled Cancelled Promyelocytes % (Man) Cancelled Cancelled Blast Cells % (Manual) Cancelled Cancelled Plasma Cell % (Manual) Cancelled Cancelled Other Cells % Cancelled Cancelled Nucleated RBC % Cancelled Cancelled Neutrophils # (Manual) Cancelled Cancelled Band Neutrophils # Cancelled Cancelled Total Absolute Neuts Cancelled Cancelled Lymphocytes # (Manual) Cancelled Cancelled Prolymphocyte # Cancelled Cancelled Reactive Lymphs # Cancelled Cancelled Total Abs Lymphocytes Cancelled Cancelled Monocytes # (Manual) Cancelled Cancelled Eosinophils # (Manual) Cancelled Cancelled Basophils # (Manual) Cancelled Cancelled Metamyelocytes # (Man) Cancelled Cancelled Myelocytes # (Manual) Cancelled Cancelled Promyelocytes # (Man) Cancelled Cancelled Blast Cells # (Man) Cancelled Cancelled Plasma Cell # (Manual) Cancelled Cancelled Other Cells # Cancelled Cancelled Nucleated RBCs # (Man) Cancelled Cancelled Hypersegmented Neuts Cancelled Cancelled Hyposegmented Neuts Cancelled Cancelled Hypogranular Neuts Cancelled Cancelled Large Granular Lymphs Cancelled Cancelled # Lrg Granular Lymphs Cancelled Cancelled Hairy Cells Cancelled Cancelled Smudge Cells Cancelled Cancelled Toxic Granulation Cancelled Cancelled Toxic Vacuolation Cancelled Cancelled Dohle Bodies Cancelled Cancelled Viktoria Rods Cancelled Cancelled Platelet Estimate Cancelled Cancelled Hypogranular Platelets Cancelled Cancelled Giant Platelets Cancelled Cancelled Platelet Satelliting Cancelled Cancelled RBC Morphology Cancelled Cancelled Polychromasia Cancelled Cancelled Hypochromasia Cancelled Cancelled Poikilocytosis Cancelled Cancelled Basophilic Stippling Cancelled Cancelled Anisocytosis Cancelled Cancelled Microcytosis Cancelled Cancelled Macrocytosis Cancelled Cancelled Spherocytes Cancelled Cancelled Pappenheimer Bodies Cancelled Cancelled Sickle Cells Cancelled Cancelled Target Cells Cancelled Cancelled Tear Drop Cells Cancelled Cancelled Ovalocytes Cancelled Cancelled Stomatocytes Cancelled Cancelled Javier-Evadale Bodies Cancelled Cancelled Echinocytes Cancelled Cancelled Acanthocytes (Spur) Cancelled Cancelled Rouleaux Cancelled Cancelled RBC Agglutinates Cancelled Cancelled Schistocytes Cancelled Cancelled Sezary Cell Cancelled Cancelled Sodium 134 L (136-145) mmol/L Potassium 3.2 L (3.5-5.1) mmol/L Chloride 94 L (98-107) mmol/L Carbon Dioxide 29 (21-32) mmol/L Anion Gap 11 (3-11) BUN 14 (6-23) mg/dl Creatinine 0.66 (0.6-1.2) mg/dl Est Cr Clr Drug Dosing 46.8 ml/min eGFR 84.32 BUN/Creatinine Ratio 21.2 H (10-20) Glucose 105 H (70-99(Fasting)) mg/dl Calcium 10.3 (8.6-10.3) mg/dl Magnesium 1.6 L (1.7-2.4) mg/dl Total Bilirubin 0.8 (0.2-1.0) mg/dl AST 28 (13-39) U/L ALT 25 (7-52) U/L Alkaline Phosphatase 93 (34-104) U/L Troponin I High Sens 140.6 H* 484.7 H* D (0-14) pg/ml B-Natriuretic Peptide 51 (0-100) pg/ml Total Protein 7.5 (6.0-8.3) gm/dl Albumin 4.3 (3.4-5.0) gm/dl Globulin 3.2 (2.5-4.0) gm/dl Albumin/Globulin Ratio 1.3 (0.9-2) TSH 5.311 H (0.300-4.500) uIu/ml Free T4 1.05 (0.61-1.60) ng/dl Adenovirus (PCR) Not Detected (NotDetected) B. pertussis DNA (PCR) Not Detected (NotDetected) B.parapertussis DNA PCR Not Detected (NotDetected) C. pneumoniae DNA (PCR) Not Detected (NotDetected) Coronavirus OC43 (PCR) Not Detected (NotDetected) Coronavirus HKU1 (PCR) Not Detected (NotDetected) Coronavirus 229E (PCR) Not Detected (NotDetected) SARS-CoV-2 (PCR) Not Detected (NotDetected) Coronavirus NL63 (PCR) Not Detected (NotDetected) Human Metapneumovir PCR Not Detected (NotDetected) Influenza Type A (PCR) Not Detected (NotDetected) Influenza Type B (PCR) Not Detected (NotDetected) M. pneumoniae (PCR) Not Detected (NotDetected) Parainfluenza 1 (PCR) Not Detected (NotDetected) Parainfluenza 2 (PCR) Not Detected (NotDetected) Parainfluenza 3 (PCR) Not Detected (NotDetected) Parainfluenza 4 (PCR) Not Detected (NotDetected) RSV (PCR) Not Detected (NotDetected) Entero/Rhino (PCR) Not Detected (NotDetected) Blood Parasites ID Cancelled Cancelled Administered Medications Magnesium Sulfate/Dextrose (Magnesium Sulfate / D5w) 1 gm in 100 mls @ 50 mls/hr IV Q2H [facility] Stop: 11/20/24 04:59 Last Admin: 11/20/24 00:11 Dose: 50 mls/hr Documented By: JEMAL Discontinued Medications Potassium Chloride (Potassium Chloride Crtab 20 Meq Tabcr) 40 meq PO NOW STA Stop: 11/19/24 22:46 Last Admin: 11/20/24 00:07 Dose: 40 meq Documented By: JEMAL Imaging Data Radiologist's Impression: Chest X-Ray 11/19/24 19:52 Exam(s): XR CXR 1 VIEW EXAM: XR Chest, 1 View CLINICAL HISTORY: Reason for exam: weakness. TECHNIQUE: Frontal view of the chest. COMPARISON: 08/30/21 FINDINGS: Lungs: Unremarkable. No consolidation. Pleural space: Unremarkable. No pleural effusion or pneumothorax. Heart: Stable cardiac silhouette. Bones/joints: No acute fracture. No dislocation. Vasculature: Thoracic aortic atherosclerosis. IMPRESSION: No acute findings in the chest. Electronically signed by: Gigi Elmore M.D. 11/19/24 21:26 PM Discharge Plan Visit Data Chief Complaint: Fall ED Provider: Minoo Ruvalcaba Discharge Problem: Elevated troponin, Ambulatory dysfunction, Weakness, Hypokalemia Patient Disposition: Admitted As Inpatient Discharge Instructions Interventions: ED Discharge Assessment Last Done: 11/19/24 23:00
[2024-11-19 22:54] LABS: Basophils # (auto) 0.04 K/uL (0.00-0.20); Basophils % (auto) 0.4 %; Eosinophils # (auto) 0.15 K/uL (0.00-0.50); Eosinophils % (auto) 1.4 %; Hematocrit (blood only) 37.5 % (37.0-47.0); Hemoglobin 13.1 g/dl (12.0-16.0); Immature Granulocytes # (auto) 0.03 K/uL (0.01-0.20); Immature Granulocytes % (auto) 0.3 %; Lymphocytes # (auto) 1.27 K/uL (1.20-3.40); Lymphocytes % (auto) 11.8 %; Mean Corpuscular Hemoglobin 31.3 pg (25.0-34.0); Mean Corpuscular Hgb Conc 34.9 g/dL (32.0-36.0); Mean Corpuscular Volume 89.7 fL (80.0-100.0); Mean Platelet Volume 10.1 fL (9.4-12.4); Monocytes % (auto) 6.5 %; Neutrophils # (auto) 8.59 K/uL (1.40-6.50); Neutrophils % (auto) 79.6 %; Platelet Count 149 K/uL (130-400); RDW Coefficient of Variation 12.2 % (11.5-14.5); RDW Standard Deviation 40.5 fL (36.4-46.3); Red Blood Count 4.18 M/uL (4.20-5.40); White Blood Count 10.78 K/ul (4.8-10.8)
[2024-11-19] MEDS ORDERED: POLYETHYLENE (MIRALAX) 17 GM PACK PO PRN (23:46)
[2024-11-19] MEDS ORDERED: ALUMINUM/MAGNESIUM SUSP 30 ML UDC PO PRN (23:46)
[2024-11-19] MEDS ORDERED: ONDANSETRON INJ 2 MG/ML 2 ML VIAL IV PRN (23:46)
[2024-11-20] MEDS: POTASSIUM CHLORIDE CRTAB 20 MEQ TABCR PO STA (00:07)
[2024-11-20] MEDS: MAGNESIUM SULFATE / D5W 1 GM/100 ML BAG IV SCH (00:11)
[2024-11-20 04:02] LABS: Basophils # (auto) 0.03 K/uL (0.00-0.20); Basophils % (auto) 0.4 %; Eosinophils # (auto) 0.14 K/uL (0.00-0.50); Eosinophils % (auto) 1.7 %; Hematocrit (blood only) 35.9 % (37.0-47.0); Hemoglobin 12.7 g/dl (12.0-16.0); Immature Granulocytes # (auto) 0.02 K/uL (0.01-0.20); Immature Granulocytes % (auto) 0.2 %; Lymphocytes # (auto) 1.49 K/uL (1.20-3.40); Lymphocytes % (auto) 18.3 %; Mean Corpuscular Hemoglobin 31.8 pg (25.0-34.0); Mean Corpuscular Hgb Conc 35.4 g/dL (32.0-36.0); Mean Platelet Volume 9.3 fL (9.4-12.4); Monocytes # (auto) 0.72 K/uL (0.11-0.59); Monocytes % (auto) 8.9 %; Neutrophils # (auto) 5.72 K/uL (1.40-6.50); Neutrophils % (auto) 70.5 %; Platelet Count 171 K/uL (130-400); RDW Coefficient of Variation 12.2 % (11.5-14.5); RDW Standard Deviation 40.4 fL (36.4-46.3); Red Blood Count 3.99 M/uL (4.20-5.40); White Blood Count 8.12 K/ul (4.8-10.8)
[2024-11-20 04:18] LABS: Albumin Globulin Ratio 1.3 (0.9-2); Albumin Level 3.6 gm/dl (3.4-5.0); BUN Creatinine Ratio 20.4 (10-20); Bilirubin,Total 0.6 mg/dl (0.2-1.0); Calcium 9.6 mg/dl (8.6-10.3); Creatinine Clr Calc Pharmacy 62.2 ml/min; Globulin 2.7 gm/dl (2.5-4.0); Potassium 3.3 mmol/L (3.5-5.1); Total Protein 6.3 gm/dl (6.0-8.3)
[2024-11-20 04:37] LABS: Appearance Urine Cloudy (Clear); Bacteria Urine Automated 4+ (None Seen); Bilirubin Urine Negative (Negative); Blood Urine Trace (Negative); Cast Urine Automated 0-2 /lpf (0-2); Color Urine Yellow; Epithelial Cell Urine Auto 0-2 /hpf (0-2); Glucose Urine UA Negative (Negative); Ketones Urine Negative (Negative); Leukocyte Esterase Urine 3+ (Negative); Nitrite Urine Negative (Negative); Protein Urine Negative (Negative); RBC Urine Automated 0-2 /hpf (0-2); Specific Gravity Urine 1.006 (1.000-1.030); Urobilinogen Urine Negative (Negative); WBC Urine Automated 21-50 /hpf (0-5); pH Urine 7.5 (4.5-7.5)
--- NOTE | 2024-11-20 06:09 | Billing Data ---
Date of Service November 19, 2024 Coding Level of Care Code 82986 INT INP/OBS CARE
[2024-11-20] MEDS: LEVOTHYROXINE SODIUM 88 MCG TABLET PO SCH (08:03)
[2024-11-20] MEDS: OXYBUTYNIN CHLORIDE XL 5 MG TABCR PO SCH (08:04)
[2024-11-20] MEDS: HEPARIN SOD 5,000 UNIT/0.5 ML VIAL SQ SCH (08:04)
[2024-11-20] MEDS: FUROSEMIDE 40 MG TAB PO SCH (08:04)
[2024-11-20] MEDS ORDERED: methylPREDNISolone 10 mg/mL (For Ped Dose < 7mg) IV SCH (10:30)
--- NOTE | 2024-11-20 10:52 | XCELERA ---
[id number]
[2024-11-20] MEDS: cefTRIAXone SODIUM 1,000 MG/50 ML BAG IV SCH (11:24)
[2024-11-20] MEDS: methylPREDNISolone 40 MG in SYRINGE 0 ML IV SCH (11:24)
[2024-11-20] MEDS: POTASSIUM CHLORIDE CRTAB 20 MEQ TABCR PO SCH (11:24)
--- NOTE | 2024-11-20 12:11 | Hospitalist Progress Note ---
Date of Service November 20, 2024 Assessment & Plan (1) Ambulatory dysfunction: Plan: Supportive care. Treat UTI. Continue OT and PT while hospitalized (2) UTI (urinary tract infection): Plan: Rocephin, day 1. Await urine culture results and sensitivities. Tailor antibiotics accordingly (3) Hypokalemia: Plan: Oral replacement ordered. Serial labs (4) Hypothyroidism: Plan: Stable. Continue current thyroid replacement dosage (5) Elevated troponin: Plan: Without acute coronary syndrome. Plan Admitted from observation. Continue OT and PT. Disposition to be determined Admission and Anticipated Discharge Date Admission Date: November 19, 2024 Subjective Alert and oriented but very weak. She is not able to ambulate independently. She has evidence of UTI. Rocephin has been started. Final identification and sensitivities pending. She has been admitted from observation status. Continue OT and PT. Parenteral steroid therapy ordered. Potassium replacement also ordered. Review of Systems 2 Review of Systems: Constitutionalno fever or chills ENTno blurred vision, no double vision, no epistaxis, no sore throat Respiratoryno cough, no wheezing, no shortness of breath Cardiacno palpitations, no chest pain, no syncope Danelle nausea, vomiting, diarrhea, melena, hematochezia GUno urinary retention, no urinary incontinence, no dysuria, no hematuria Musculoskeletalambulatory dysfunction with myalgia and arthralgia Skin no bruising, no rashes, no pruritus Neurono isolated weakness, no paresthesia Psychno depression, no anxiety Physical Exam 2 Physical Exam: General-alert and oriented x3, no fever, no chills HEENT-head atraumatic and normocephalic, pupils equal and reactive to light, extraocular muscles intact Neck-no lymphadenopathy or thyromegaly, trachea midline Chest-clear to auscultation. No rales, wheezing or rhonchi Cardiac-regular rate and rhythm, normal S1 and S2 Abdomen-normal bowel sounds, no hepatosplenomegaly Extremities-no cyanosis, clubbing, or edema Neuro-cranial nerves II through XII intact, motor and sensory function within normal limits, strength symmetrical with generalized weakness, no focal deficits Psych-normal affect, normal mood Results & Data Results & Data Vital Signs (Past 12 Hours) Vital Signs Temp Pulse Pulse Resp BP BP Pulse Ox 11/20/24 11:55 36.8 C 77 18 151/76 H 93 11/20/24 07:41 36.8 C 78 18 139/85 93 11/20/24 07:15 96 H 11/20/24 07:15 11/20/24 04:05 36.7 C 81 18 146/92 H 95 O2 Del Method 11/20/24 11:55 Room Air 11/20/24 07:41 Room Air 11/20/24 07:15 11/20/24 07:15 Room Air 11/20/24 04:05 Room Air Laboratory Results 11/20/24 03:38 11/20/24 03:38 PG Care Time/CCT Total # of Minutes Spent Total Time Spent with Patient: Total time spent is greater than 50% in coordination of care (as documented) at patient's floor/unit and/or counseling patient: Coding Level of Care Code 32410 SUB INP/OBS CARE 3/50MIN Diagnoses Ambulatory dysfunction R26.2 UTI (urinary tract infection) N39.0 Hypokalemia E87.6 Acquired hypothyroidism E03.9 Hypothyroidism type: acquired Elevated troponin R79.89 (4) Hypothyroidism Hypothyroidism type: acquired Qualified Code(s): E03.9 - Hypothyroidism, unspecified
--- NOTE | 2024-11-20 15:42 | Electrocardiogram Report ---
Test Reason : Blood Pressure : */* mmHG Vent. Rate : 79 BPM Atrial Rate : 79 BPM P-R Int : 200 ms QRS Dur : 74 ms QT Int : 272 ms P-R-T Axes : 67 -7 48 degrees QTcB Int : 311 ms Normal sinus rhythm with sinus arrhythmia When compared with ECG of 30-Aug-2021 11:39, Nonspecific T wave abnormality, worse in Anterolateral leads QT has shortened Confirmed by Jose Angel Murphy ([id number]) on 11/20/2024 3:42:05 PM Referred By: REFERRED SELF Confirmed By: Jose Angel Murphy
[2024-11-20] MEDS ORDERED: GABAPENTIN 300 MG CAP PO SCH (21:00)
[2024-11-20] MEDS: GABAPENTIN 100 MG CAP PO SCH (21:12)
[2024-11-20] MEDS: PRAVASTATIN SOD 40 MG TAB PO SCH (21:13)
[2024-11-21] MEDS: MICONAZOLE NITRATE POWDER 85 GM EXT SCH (00:52)
[2024-11-21 04:54] LABS: Hemoglobin 12.8 g/dl (12.0-16.0); Immature Granulocytes # (auto) 0.03 K/uL (0.01-0.20); Immature Granulocytes % (auto) 0.3 %; Lymphocytes # (auto) 1.16 K/uL (1.20-3.40); Lymphocytes % (auto) 13.4 %; Mean Corpuscular Hemoglobin 31.9 pg (25.0-34.0); Mean Corpuscular Hgb Conc 35.6 g/dL (32.0-36.0); Mean Corpuscular Volume 89.8 fL (80.0-100.0); Mean Platelet Volume 9.5 fL (9.4-12.4); Monocytes # (auto) 0.12 K/uL (0.11-0.59); Monocytes % (auto) 1.4 %; Neutrophils # (auto) 7.33 K/uL (1.40-6.50); Neutrophils % (auto) 84.9 %; Platelet Count 170 K/uL (130-400); RDW Coefficient of Variation 12.1 % (11.5-14.5); RDW Standard Deviation 39.7 fL (36.4-46.3); Red Blood Count 4.01 M/uL (4.20-5.40); White Blood Count 8.64 K/ul (4.8-10.8)
[2024-11-21 05:13] LABS: BUN Creatinine Ratio 21.4 (10-20); Calcium 8.7 mg/dl (8.6-10.3); Potassium 3.7 mmol/L (3.5-5.1)
[2024-11-21] MEDS: FAMOTIDINE 20 MG TAB PO PRN (08:41)
[2024-11-21] MEDS: methylPREDNISolone 40 MG in SYRINGE 0 ML IV SCH (09:43)
--- NOTE | 2024-11-21 13:58 | Hospitalist Progress Note ---
Date of Service November 21, 2024 Assessment & Plan (1) Ambulatory dysfunction: Plan: Supportive care. Treat UTI. Continue OT and PT while hospitalized (2) UTI (urinary tract infection): Plan: Rocephin, day 2. E. coli isolated in urine cultures. Sensitivities pending (3) Hypokalemia: Plan: Corrected with oral replacement. Serial labs (4) Hypothyroidism: Plan: Stable. Continue current thyroid replacement dosage (5) Elevated troponin: Plan: Without acute coronary syndrome. Troponin is downtrending Plan It appears she will need SNF placement at discharge. She has opted for placement at either [facility] or [place]. Case management aware and involved Admission and Anticipated Discharge Date Admission Date: November 20, 2024 Subjective Alert and oriented. No acute distress. Pleasant. She states she is feeling better. E. coli isolated in the urine. She is currently on Rocephin, day 2. Parenteral steroid therapy has been down titrated today, November 21. Will discontinue Solu-Medrol tomorrow, November 22. Mild hypokalemia has been corrected with oral potassium replacement. Troponin is downtrending and she has no evidence of acute coronary syndrome. It appears SNF placement will be necessary at either [facility] or [facility]. Review of Systems 2 Review of Systems: Constitutionalno fever or chills ENTno blurred vision, no double vision, no epistaxis, no sore throat Respiratoryno cough, no wheezing, no shortness of breath Cardiacno palpitations, no chest pain, no syncope Danelle nausea, vomiting, diarrhea, melena, hematochezia GUno urinary retention, no urinary incontinence, no dysuria, no hematuria Musculoskeletalambulatory dysfunction with myalgia and arthralgia Skin no bruising, no rashes, no pruritus Neurono isolated weakness, no paresthesia Psychno depression, no anxiety Physical Exam 2 Physical Exam: General-alert and oriented x3, no fever, no chills HEENT-head atraumatic and normocephalic, pupils equal and reactive to light, extraocular muscles intact Neck-no lymphadenopathy or thyromegaly, trachea midline Chest-clear to auscultation. No rales, wheezing or rhonchi Cardiac-regular rate and rhythm, normal S1 and S2 Abdomen-normal bowel sounds, no hepatosplenomegaly Extremities-no cyanosis, clubbing, or edema Neuro-cranial nerves II through XII intact, motor and sensory function within normal limits, strength symmetrical with generalized weakness, no focal deficits Psych-normal affect, normal mood Results & Data Results & Data Vital Signs (Past 12 Hours) Vital Signs Temp Pulse Resp BP Pulse Ox O2 Del Method 11/21/24 07:49 36.3 C L 70 18 148/77 H 94 Room Air Laboratory Results 11/21/24 04:39 11/21/24 04:39 PG Care Time/CCT Total # of Minutes Spent Total Time Spent with Patient: Total time spent is greater than 50% in coordination of care (as documented) at patient's floor/unit and/or counseling patient: Coding Level of Care Code 20439 SUB INP/OBS CARE 2/35MIN Diagnoses Ambulatory dysfunction R26.2 UTI (urinary tract infection) N39.0 Hypokalemia E87.6 Acquired hypothyroidism E03.9 Hypothyroidism type: acquired Elevated troponin R79.89 (4) Hypothyroidism Hypothyroidism type: acquired Qualified Code(s): E03.9 - Hypothyroidism, unspecified
[2024-11-22] MEDS: ACETAMINOPHEN 325 MG TAB PO PRN (04:19)
[2024-11-22 04:56] LABS: Basophils # (auto) 0.01 K/uL (0.00-0.20); Basophils % (auto) 0.1 %; Hematocrit (blood only) 37.9 % (37.0-47.0); Hemoglobin 13.4 g/dl (12.0-16.0); Immature Granulocytes % (auto) 0.7 %; Lymphocytes # (auto) 1.29 K/uL (1.20-3.40); Lymphocytes % (auto) 9.1 %; Mean Corpuscular Hemoglobin 31.8 pg (25.0-34.0); Mean Corpuscular Hgb Conc 35.4 g/dL (32.0-36.0); Mean Platelet Volume 9.9 fL (9.4-12.4); Monocytes # (auto) 0.26 K/uL (0.11-0.59); Monocytes % (auto) 1.8 %; Neutrophils # (auto) 12.49 K/uL (1.40-6.50); Neutrophils % (auto) 88.3 %; Platelet Count 191 K/uL (130-400); RDW Coefficient of Variation 12.1 % (11.5-14.5); RDW Standard Deviation 39.6 fL (36.4-46.3); Red Blood Count 4.21 M/uL (4.20-5.40); White Blood Count 14.15 K/ul (4.8-10.8)
[2024-11-22 05:12] LABS: BUN Creatinine Ratio 28.1 (10-20); Calcium 8.9 mg/dl (8.6-10.3); Potassium 4.4 mmol/L (3.5-5.1)
[2024-11-22] MEDS: POTASSIUM CHLORIDE 10 MEQ TABCR PO SCH (09:29)
--- NOTE | 2024-11-22 14:47 | Hospitalist Progress Note ---
Date of Service November 22, 2024 Assessment & Plan (1) Ambulatory dysfunction: Plan: Supportive care. Treat UTI. Continue OT and PT while hospitalized (2) UTI (urinary tract infection): Plan: Rocephin, day 3. E. coli isolated in urine cultures. Pansensitive (3) Hypokalemia: Plan: Corrected with oral replacement. Oral potassium chloride dosage down titrated today, November 22. Serial labs (4) Hypothyroidism: Plan: Stable. Continue current thyroid replacement dosage (5) Elevated troponin: Plan: Without acute coronary syndrome. Troponin is downtrending Plan It appears she will need SNF placement at discharge. She has opted for placement at either [facility] or [place]. Case management aware and involved. She is medically stable for discharge Admission and Anticipated Discharge Date Admission Date: November 20, 2024 Subjective Alert and oriented. Stable overall. Potassium corrected to 4.4. Oral potassium dosage decreased. Will discontinue Solu-Medrol now. E. coli isolated in the urine. Pansensitive. Continue intravenous Rocephin, day 3. Awaiting discharge to [facility] or [place] facility Review of Systems 2 Review of Systems: Constitutionalno fever or chills ENTno blurred vision, no double vision, no epistaxis, no sore throat Respiratoryno cough, no wheezing, no shortness of breath Cardiacno palpitations, no chest pain, no syncope Danelle nausea, vomiting, diarrhea, melena, hematochezia GUno urinary retention, no urinary incontinence, no dysuria, no hematuria Musculoskeletalambulatory dysfunction with myalgia and arthralgia Skin no bruising, no rashes, no pruritus Neurono isolated weakness, no paresthesia Psychno depression, no anxiety Physical Exam 2 Physical Exam: General-alert and oriented x3, no fever, no chills HEENT-head atraumatic and normocephalic, pupils equal and reactive to light, extraocular muscles intact Neck-no lymphadenopathy or thyromegaly, trachea midline Chest-clear to auscultation. No rales, wheezing or rhonchi Cardiac-regular rate and rhythm, normal S1 and S2 Abdomen-normal bowel sounds, no hepatosplenomegaly Extremities-no cyanosis, clubbing, or edema Neuro-cranial nerves II through XII intact, motor and sensory function within normal limits, strength symmetrical with generalized weakness, no focal deficits Psych-normal affect, normal mood Results & Data Results & Data Vital Signs (Past 12 Hours) Vital Signs Temp Pulse Resp BP Pulse Ox O2 Del Method 11/22/24 10:30 36.3 C L 63 16 143/74 H 95 Room Air 11/22/24 07:57 36.3 C L 66 20 119/68 92 Room Air Laboratory Results 11/22/24 04:08 11/22/24 04:08 PG Care Time/CCT Total # of Minutes Spent Total Time Spent with Patient: Total time spent is greater than 50% in coordination of care (as documented) at patient's floor/unit and/or counseling patient: Coding Level of Care Code 28588 SUB INP/OBS CARE 2/35MIN Diagnoses Ambulatory dysfunction R26.2 UTI (urinary tract infection) N39.0 Hypokalemia E87.6 Acquired hypothyroidism E03.9 Hypothyroidism type: acquired Elevated troponin R79.89 (4) Hypothyroidism Hypothyroidism type: acquired Qualified Code(s): E03.9 - Hypothyroidism, unspecified
[2024-11-23 09:26] LABS: Anion Gap 6 (3-11); BUN Creatinine Ratio 30.5 (10-20); Blood Urea Nitrogen 18 mg/dl (6-23); Calcium 8.8 mg/dl (8.6-10.3); Carbon Dioxide 30 mmol/L (21-32); Chloride 98 mmol/L (98-107); Creatinine Clr Calc Pharmacy 56.4 ml/min; Glucose 115 mg/dl (70-99(Fasting)); Sodium 134 mmol/L (136-145)
--- NOTE | 2024-11-23 19:09 | Hospitalist Progress Note ---
Date of Service November 23, 2024 Assessment & Plan (1) Ambulatory dysfunction: Plan: Supportive care. Treat UTI. Continue OT and PT while hospitalized (2) UTI (urinary tract infection): Plan: Rocephin, day 3. E. coli isolated in urine cultures. Pansensitive (3) Hypokalemia: Plan: Corrected with oral replacement. Oral potassium chloride dosage down titrated today, November 22. Serial labs (4) Hypothyroidism: Plan: Stable. Continue current thyroid replacement dosage (5) Elevated troponin: Plan: Without acute coronary syndrome. Troponin is downtrending Plan It appears she will need SNF placement at discharge. She has opted for placement at either [facility] or [place]. Case management aware and involved. She is medically stable for discharge Admission and Anticipated Discharge Date Admission Date: November 20, 2024 Subjective resting comfortably, tolerating PO, BM regular, no complaints Physical Exam Physical Exam: General-alert and oriented x3, no fever, no chills HEENT-head atraumatic and normocephalic, pupils equal and reactive to light, extraocular muscles intact Neck-no lymphadenopathy or thyromegaly, trachea midline Chest-clear to auscultation. No rales, wheezing or rhonchi Cardiac-regular rate and rhythm, normal S1 and S2 Abdomen-normal bowel sounds, no hepatosplenomegaly Extremities-no cyanosis, clubbing, or edema Neuro-cranial nerves II through XII intact, motor and sensory function within normal limits, strength symmetrical with generalized weakness, no focal deficits Psych-normal affect, normal mood Results & Data Results & Data Vital Signs (Past 12 Hours) Vital Signs Temp Pulse Resp BP Pulse Ox O2 Del Method 11/23/24 15:27 36.3 C L 59 L 18 149/77 H 96 Room Air 11/23/24 07:11 36.5 C 74 16 122/74 94 Room Air PG Care Time/CCT Total # of Minutes Spent Total Time Spent with Patient: Total time spent is greater than 50% in coordination of care (as documented) at patient's floor/unit and/or counseling patient: Coding Level of Care Code 10973 SUB INP/OBS CARE 2/35MIN Diagnoses Ambulatory dysfunction R26.2 UTI (urinary tract infection) N39.0 Hypokalemia E87.6 Acquired hypothyroidism E03.9 Hypothyroidism type: acquired Elevated troponin R79.89 (4) Hypothyroidism Hypothyroidism type: acquired Qualified Code(s): E03.9 - Hypothyroidism, unspecified
--- NOTE | 2024-11-24 18:16 | Hospitalist Progress Note ---
Date of Service November 24, 2024 Assessment & Plan (1) Ambulatory dysfunction: Plan: Supportive care. Treat UTI. Continue OT and PT while hospitalized (2) UTI (urinary tract infection): Plan: Rocephin, day 3. E. coli isolated in urine cultures. Pansensitive (3) Hypokalemia: Plan: Corrected with oral replacement. Oral potassium chloride dosage down titrated today, November 22. Serial labs (4) Hypothyroidism: Plan: Stable. Continue current thyroid replacement dosage (5) Elevated troponin: Plan: Without acute coronary syndrome. Troponin is downtrending Plan It appears she will need SNF placement at discharge. She has opted for placement at either [facility] or [place]. Case management aware and involved. She is medically stable for discharge Admission and Anticipated Discharge Date Admission Date: November 20, 2024 Subjective resting comfortably, tolerating PO, BM regular, no complaints, aware of plan to d/c to SNF when bed available Physical Exam Physical Exam: General-alert and oriented x3, no fever, no chills HEENT-head atraumatic and normocephalic, pupils equal and reactive to light, extraocular muscles intact Neck-no lymphadenopathy or thyromegaly, trachea midline Chest-clear to auscultation. No rales, wheezing or rhonchi Cardiac-regular rate and rhythm, normal S1 and S2 Abdomen-normal bowel sounds, no hepatosplenomegaly Extremities-no cyanosis, clubbing, or edema Neuro-cranial nerves II through XII intact, motor and sensory function within normal limits, strength symmetrical with generalized weakness, no focal deficits Psych-normal affect, normal mood Results & Data Results & Data Vital Signs (Past 12 Hours) Vital Signs Temp Pulse Resp BP BP Pulse Ox O2 Del Method 11/24/24 15:50 36.3 C L 61 18 137/80 96 Room Air 11/24/24 07:20 36.2 C L 59 L 17 119/67 96 Room Air PG Care Time/CCT Total # of Minutes Spent Total Time Spent with Patient: Total time spent is greater than 50% in coordination of care (as documented) at patient's floor/unit and/or counseling patient: Coding Level of Care Code 42559 SUB INP/OBS CARE 2/35MIN Diagnoses Ambulatory dysfunction R26.2 UTI (urinary tract infection) N39.0 Hypokalemia E87.6 Acquired hypothyroidism E03.9 Hypothyroidism type: acquired Elevated troponin R79.89 (4) Hypothyroidism Hypothyroidism type: acquired Qualified Code(s): E03.9 - Hypothyroidism, unspecified
--- NOTE | 2024-11-25 19:53 | Hospitalist Progress Note ---
Date of Service November 25, 2024 Assessment & Plan (1) Ambulatory dysfunction: Plan: Supportive care. Treat UTI. Continue OT and PT while hospitalized (2) UTI (urinary tract infection): Plan: Rocephin, day 3. E. coli isolated in urine cultures. Pansensitive (3) Hypokalemia: Plan: Corrected with oral replacement. Oral potassium chloride dosage down titrated today, November 22. Serial labs (4) Hypothyroidism: Plan: Stable. Continue current thyroid replacement dosage (5) Elevated troponin: Plan: Without acute coronary syndrome. Troponin is downtrending Plan It appears she will need SNF placement at discharge. She has opted for placement at either [facility] or [place]. Case management aware and involved. She is medically stable for discharge Admission and Anticipated Discharge Date Admission Date: November 20, 2024 Subjective resting comfortably, tolerating PO, BM regular, no complaints, aware of plan to d/c to SNF when bed available Physical Exam Physical Exam: General-alert and oriented x3, no fever, no chills HEENT-head atraumatic and normocephalic, pupils equal and reactive to light, extraocular muscles intact Neck-no lymphadenopathy or thyromegaly, trachea midline Chest-clear to auscultation. No rales, wheezing or rhonchi Cardiac-regular rate and rhythm, normal S1 and S2 Abdomen-normal bowel sounds, no hepatosplenomegaly Extremities-no cyanosis, clubbing, or edema Neuro-cranial nerves II through XII intact, motor and sensory function within normal limits, strength symmetrical with generalized weakness, no focal deficits Psych-normal affect, normal mood Results & Data Results & Data Vital Signs (Past 12 Hours) Vital Signs Temp Pulse Resp BP Pulse Ox O2 Del Method 11/25/24 14:49 36.8 C 72 16 147/78 H 96 Room Air PG Care Time/CCT Total # of Minutes Spent Total Time Spent with Patient: Total time spent is greater than 50% in coordination of care (as documented) at patient's floor/unit and/or counseling patient: Coding Level of Care Code 22282 SUB INP/OBS CARE 2/35MIN Diagnoses Ambulatory dysfunction R26.2 UTI (urinary tract infection) N39.0 Hypokalemia E87.6 Acquired hypothyroidism E03.9 Hypothyroidism type: acquired Elevated troponin R79.89 (4) Hypothyroidism Hypothyroidism type: acquired Qualified Code(s): E03.9 - Hypothyroidism, unspecified
--- NOTE | 2024-11-26 16:43 | Hospitalist Progress Note ---
Date of Service November 26, 2024 Assessment & Plan (1) Ambulatory dysfunction: Plan: Ambulatory dysfunction Supportive care PT/OT recommending SNF [facility] /. Pending UTI E. coli UTI, without sepsis/pyelo- Pansensitive E. coli currently on Rocephin Target 5 days of treatment. Can transition to oral cephalosporin at time of discharge. Will continue Rocephin for now. Hypokalemia Continue repletion, normalized 11/21 - 11/23 Spot labs as needed Hypothyroidism Chronic, stable. Continue Synthroid Elevated troponin Downtrended, no ongoing chest pain. Suspected demand. Disposition: Placement pending DVT prophylaxis: Continue heparin twice daily CODE STATUS: DNR/DNI Diet: Heart healthy (2) UTI (urinary tract infection): (3) Hypokalemia: (4) Hypothyroidism: (5) Elevated troponin: Admission and Anticipated Discharge Date Admission Date: November 20, 2024 Subjective Sleeping comfortably, awakens easily with no complaints but falls back asleep following exam. No questions at bedside visit. Physical Exam Physical Exam: General: Asleep, comfortable at time of visit. Awakens easily and is oriented to name and place. HEENT: Atraumatic, normocephalic. Pulm: CTAB A&P. -wheezes, -rales, -rhonchi. Symmetrical chest rise. No increased work of breathing. No respiratory distress. Cardiac: RRR, -mrg. Radial pulses intact and symmetrical. Abdominal: Nontender, nondistended, soft. BS present. Results & Data Results & Data Vital Signs (Past 12 Hours) Vital Signs Temp Pulse Resp BP Pulse Ox O2 Del Method 11/26/24 15:13 36.5 C 67 16 115/77 97 Room Air 11/26/24 08:03 36.5 C 66 15 129/73 94 Room Air PG Care Time/CCT Total # of Minutes Spent Total Time Spent with Patient: Total time spent is greater than 50% in coordination of care (as documented) at patient's floor/unit and/or counseling patient: Coding Level of Care Code 38755 SUB INP/OBS CARE 12/19MIN Diagnoses Ambulatory dysfunction R26.2 UTI (urinary tract infection) N39.0 Hypokalemia E87.6 Acquired hypothyroidism E03.9 Hypothyroidism type: acquired Elevated troponin R79.89 (4) Hypothyroidism Hypothyroidism type: acquired Qualified Code(s): E03.9 - Hypothyroidism, un specified
--- NOTE | 2024-11-27 07:50 | Discharge Summary ---
Discharge Summary Date of Service November 27, 2024 Principal Dx & Hospital Course #1 = Principal Diagnosis (1) Ambulatory dysfunction: Mrs. Lorenzo is an 89-year-old female who presented with E. coli UTI without sepsis, ambulatory dysfunction who improved clinically on Rocephin and completed a 5-day course of antibiotics. She had significant ambulatory dysfunction and was recommended for SNF per PT/OT. [facility]. Patient was with concerns over progressive weakness and difficulty in her home environment was concerned she needed to potentially move from personal-half-way to assisted living in the near future. Would like to see how she does with skilled rehab and will continue to follow-up with her PCP for further. No questions and felt well although globally weak at time of discharge Ambulatory dysfunction Supportive care PT/OT recommending SNF [facility] 11/27. Discharged to [facility] UTI E. coli UTI, without sepsis/pyelo- Pansensitive E. coli currently on Rocephin Completed 5 days of antibiotics while inpatient, no ongoing symptoms day of discharge Hypokalemia Repleted, spot labs were drawn as needed Hypothyroidism Chronic, stable. Continue Synthroid Elevated troponin Downtrended, no ongoing chest pain. Suspected demand. (2) UTI (urinary tract infection): (3) Hypokalemia: (4) Hypothyroidism: (5) Elevated troponin: Admission HPI Per Admitting Provider Tamela Lorenzo is a 89 year-old female with a medical history significant for HTN, HLD, hypothyroidism, IBS, prior pressure ulcers. HPI is provided by patient and her son, Matias who is at bedside. 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 On 11/19, patient was using her rollator walker at home when she felt that her legs "just gave out" and she lowered herself onto the floor landing on her rear end. This prompted her trip to the ED for evaluation. Last week she received another round of "gel injections" in her knees to try to help with the pain. Also was started on spironolactone last week for worsening lower leg swelling. Patient states that she is scheduled to start home PT next week, but is concerned that it was too late for the weakness she is experiencing. States she lives in a senior apartment building but recently had to hire someone to come and clean/sweep/do the laundry which she has not previously needed. Patient states she has called [facility] and was told she is "on a waiting list" to be considered. Patient denies any chest pain, shortness of breath, changes in bowel or bladder function. ED Course: -CBC, CMP, BNP, TSH, troponin -EKG -Chest XR Discharge Exam General: Awake, eating breakfast comfortably at time of morning visit HEENT: Atraumatic, normocephalic. Pulm: CTAB A&P. -wheezes, -rales, -rhonchi. Symmetrical chest rise. No increased work of breathing. No respiratory distress. Cardiac: RRR, -mrg. Radial pulses intact and symmetrical. Abdominal: Nontender, nondistended, soft. BS present. Discharge Plan Discharge Items Patient Disposition: Transfer Halfway Fac Reason For Visit: WEAKNESS Discharge Diagnosis: UTI, ambulatory dysfunction Activity: Per Instructions section Non-emergency contact: Primary Care Provider Call non-emergency contact if: you have any medication questions, your symptoms worsen and your rectal temperature is above 100.4 Follow-up/Referrals: Dakota Lopez III, CRNP [Primary Care Provider] - Diet: Regular Addtl Attending Provider Instructions: You are seen in the hospital for urinary tract infection and completed a course of antibiotics during her hospitalization. You were seen by physical therapy and due to weakness and ambulatory dysfunction were recommended for further therapy at and discharged to [facility], A follow-up appointment is being scheduled for you with your PCP as noted above. If you need to change this appointment please contact our office directly at the number above If you develop any new or worsening symptoms including fever, chills, sweats, chest pain, chest pressure, difficulty breathing, uncontrolled nausea/vomiting, rash, wheezing, passing out or nearly passing out, bleeding, black/bloody bowel movements, or other new or concerning symptoms please call your primary care physician, or call 911 for re-evaluation in the emergency department if you are very concerned. Pending Studies at Discharge: No Stand-Alone Forms: My [employer] Skilled Items Patient informed of condition?: Yes DNR: Yes Discharge Level of Care: Skilled Communicable Disease: No Discharge Prognosis: Stable Lines: None Urinary Catheter: No Medications and DC Order Prescriptions: Continued (DME) blood sugar diagnostic Strip See Rx Instructions .ROUTE .MEDSUPPLY Qty: 300 1RF Rx Instructions: TEST 2-3 TIMES DAILY. DX E11.9 (DME) blood-glucose meter [OneTouch Ultra2 Meter] Misc See Rx Instructions .Route Qty: 1 0RF Rx Instructions: As directed (DME) OneTouch Ultra Test Strip See Rx Instructions .Route Qty: 100 3RF Rx Instructions: patient tests once per day gabapentin 300 mg capsule See Rx Instructions .ROUTE .COMPLEX Qty: 90 3RF Dose Instruction: TAKE 1 CAPSULE BY MOUTH AT BEDTIME Rx Instructions: TAKE 1 CAPSULE BY MOUTH AT BEDTIME pravastatin 40 mg tablet See Rx Instructions .ROUTE .COMPLEX Qty: 90 3RF Dose Instruction: TAKE 1 TABLET BY MOUTH ONCE DAILY Rx Instructions: TAKE 1 TABLET BY MOUTH ONCE DAILY diphenoxylate-atropine 2.5-0.025 mg tablet 1 tab PO TID PRN (Reason: diarrhea) Qty: 90 3RF chlordiazepoxide HCl 5 mg capsule 5 mg PO TID PRN (Reason: anxiety) Qty: 90 2RF Rx Instructions: Carmelo Saravia Rxs- med has been APPROVED 02/19/2024 SDL solifenacin [Vesicare] 5 mg tablet 5 mg PO DAILY Qty: 90 3RF levothyroxine [Synthroid] 88 mcg tablet 88 mcg PO DAILY Qty: 90 3RF meclizine 12.5 mg tablet 12.5 mg PO TID PRN (Reason: dizziness) Qty: 60 1RF Rx Instructions: hasn't used in awhile but keeps on hand multivitamin with iron [Daily Multiple Vitamins/Iron] tablet 1 tab PO DAILY omega-3 fatty acids-fish oil [Fish Oil] 360-1,200 mg capsule 1 cap PO DAILY calcium carbonate-vit D3-min 600 mg calcium- 400 unit tablet 1 tab PO BID glucosamine sulfate 1,000 mg capsule 1,000 mg PO BID fexofenadine [Allergy Relief (fexofenadine)] 60 mg tablet 60 mg PO DAILY cranberry extract 650 mg capsule 650 mg PO BID diclofenac sodium [Voltaren] 1 % gel 4 g topical QID PRN (Reason: Joint Pain) Qty: 100 1RF Rx Instructions: apply to single knee, ankle, foot; for foot includes sole/toes/top of foot ascorbate calcium (vitamin C) 500 mg tablet 500 mg PO BID ibuprofen 200 mg capsule 200 mg PO BID PRN (Reason: Pain) promethazine 12.5 mg tablet See Rx Instructions .ROUTE .COMPLEX Qty: 90 0RF Dose Instruction: TAKE ONE TABLET BY MOUTH THREE TIMES DAILY NEEDED for nausea and vomiting Rx Instructions: TAKE ONE TABLET BY MOUTH THREE TIMES DAILY NEEDED for nausea and vomiting (DME) lancets [OneTouch Delica Lancets] 33 gauge misc See Rx Instructions .Route Qty: 100 2RF Rx Instructions: pt tests once per day furosemide 40 mg tablet 0 mg PO DAILY Rx Instructions: PT unsure of current dose; Pt reported Dr. Petit lowered dose. Taking in combination with Spironolactone 50 mg miscellaneous medical supply Misc 1 ea miscellaneous .COMPLEX Qty: 1 0RF Rx Instructions: ROLLATOR WITH SEAT AND HAND BRAKES acetaminophen [Tylenol Extra Strength] 500 mg Tablet 1,000 mg PO Q6H PRN (Reason: Pain) famotidine 20 mg tablet 20 mg PO DAILY PRN (Reason: gastric upset) spironolactone 50 mg tablet 50 mg PO DAILY Discharge Orders: Discharge Order (Routine); Ordered 11/27/24 Ordered By: Omari Robison Admission Data Admit Date/Time: 11/20/24 12:06 Attending Provider: Omari Robison Admit Provider: Kari Harris Primary Care Provider: Dakota Lopez III Other Providers: Monse Barraza; [facility]; [facility] Hospital Stay Data Consultations 11/19/24 21:40 ED Decision to Admit Stat Discharge Instructions Given to Patient (Per Discharging Provider) You are seen in the hospital for urinary tract infection and completed a course of antibiotics during her hospitalization. You were seen by physical therapy and due to weakness and ambulatory dysfunction were recommended for further therapy at and discharged to [facility], A follow-up appointment is being scheduled for you with your PCP as noted above. If you need to change this appointment please contact our office directly at the number above If you develop any new or worsening symptoms including fever, chills, sweats, chest pain, chest pressure, difficulty breathing, uncontrolled nausea/vomiting, rash, wheezing, passing out or nearly passing out, bleeding, black/bloody bowel movements, or other new or concerning symptoms please call your primary care physician, or call 911 for re-evaluation in the emergency department if you are very concerned. Total Time Total Time Spent Total Time Spent (In Minutes): Time spend day of discharge 20 minutes including direct patient care, documentation, review of labs and images, and coordination of care. Coding Level of Care Code 74746 INP/OBS DISCH >30 MIN Diagnoses Ambulatory dysfunction R26.2 UTI (urinary tract infection) N39.0 Hypokalemia E87.6 Acquired hypothyroidism E03.9 Hypothyroidism type: acquired Elevated troponin R79.89
[2024-11-27 08:09] VITALS: BP 111/70; PULSE 69; RESP 17; TEMP 97.9; O2SAT 94
== END 2024-11-27 11:16 | DRG 690 ==
LOC: ED 19:39 → 2W 19:39 → SUATTDRO 22:25 → 2W 23:00 → SUATTDRO 11-20 12:06 → 3E 11-22 10:16